=== PATIENT | female | born 1935 | race Hispanic/Latino ===

== ENCOUNTER 2017-09-07 10:39 | Emergency (ER) | payer MEDICARE, MEDICAID ==
[2017-09-07 10:39] VITALS: BMI 25.7
[2017-09-07 11:53] LABS: BASO % 0.3 % (0.0-2.0); EOS # 0.1 K/uL (0.0-0.7); EOS % 0.9 % (0.0-4.0); HEMOGLOBIN 11.2 g/dL (11.0-16.0); LYMPH % 8.6 % (20.0-40.0); MEAN CELL VOLUME 91.9 fL (81.0-99.0); MEAN CORPUSCULAR HEMOGLOBIN 31.5 pg (27.0-31.0); MEAN CORPUSCULAR HGB CONC 34.3 g/dL (33.0-37.0); MEAN PLATELET VOLUME 8.3 fL (7.2-11.7); MONO # 0.9 K/uL (0.0-0.8); MONO % 7.8 % (0.0-10.0); NEUT % 82.4 % (50.0-75.0); PLATELET COUNT 193 K/uL (130-400); RBC 3.57 Mil/uL (3.80-5.20); WHITE BLOOD COUNT 12.2 K/uL (4.8-10.8)
--- NOTE | 2017-09-07 12:09 | RAD ---
PROCEDURE: CHEST RADIOGRAPH, 1 VIEW HISTORY: chest pain COMPARISON: 03/20/2013 FINDINGS: LUNGS: Linear scar/ atelectasis at left base. Calcified granuloma at left base. No acute infiltrate. PLEURA: No pneumothorax or pleural fluid seen. CARDIOVASCULAR: Normal. OSSEOUS STRUCTURES: Old deformity right humeral head/ neck likely posttraumatic. VISUALIZED UPPER ABDOMEN: Normal. OTHER FINDINGS: None. IMPRESSION: No acute infiltrate.
[2017-09-07 12:18] LABS: BANDS 1 % (0-2); EOSINOPHIL 1 % (0-4); LYMPHOCYTE 5 % (20-40); MONOCYTE 6 % (0-10); NEUTROPHIL 87 % (50-75); PLATELET ESTIMATE NORMAL (NORMAL); TOTAL CELLS COUNTED 100
--- NOTE | 2017-09-07 12:21 | C.PDOC ---
History Of Present Illness 81 y/o female present sto ED with c/o body aches, cough and subjective fever for 2 days. Patient reports she is on oxygen twice at day at home and uses inhaler whhen needed. Patient admits to rib pain with inspiration and denies nausea, vomiting, diarrhea or any other complaints at this time. Time Seen by Provider: 09/07/17 11:24 Chief Complaint (Nursing): Flu-like Symptoms History Per: Patient History/Exam Limitations: no limitations Onset/Duration Of Symptoms: Days Current Symptoms Are (Timing): Still Present Associated Symptoms: Cough. denies: Nausea, Vomiting, Diarrhea Past Medical History Reviewed: Historical Data, Nursing Documentation, Vital Signs Vital Signs: Last Vital Signs Temp 98.2 F 09/07/17 13:51 Pulse 74 09/07/17 13:51 Resp 18 09/07/17 13:51 BP 118/74 09/07/17 13:51 Pulse Ox 100 09/07/17 13:51 - Medical History PMH: Arthritis, Diabetes, Gastritis, HTN, Hypercholesterolemia Surgical History: Appendectomy - [facility] Procedures INJECT/INFUSE NEC (10/12/12) NON-INVASIVE MECHANICAL VENTILATION (05/28/13) Family History: States: No Known Family Hx - Social History Hx Tobacco Use: No Hx Alcohol Use: No Hx Substance Use: No - Immunization History Hx Tetanus Toxoid Vaccination: No Hx Influenza Vaccination: Yes Hx Pneumococcal Vaccination: Yes Review Of Systems Constitutional: Positive for: Fever. Negative for: Chills Cardiovascular: Negative for: Chest Pain Respiratory: Positive for: Cough. Negative for: Shortness of Breath Gastrointestinal: Negative for: Nausea, Vomiting Skin: Negative for: Rash Physical Exam - Physical Exam Appears: Non-toxic, No Acute Distress, Other (elderly appearing) Skin: Warm, Dry, No Rash Head: Atraumatic, Normacephalic Neck: Normal ROM, Supple Cardiovascular: Rhythm Regular Respiratory: Normal Breath Sounds, No Accessory Muscle Use, No Rales, No Rhonchi , No Wheezing Gastrointestinal/Abdominal: Soft, No Tenderness, No Guarding, No Rebound Neurological/Psych: Oriented x3, Normal Speech, Normal Cognition ED Course And Treatment - Laboratory Results Result Diagrams: 09/07/17 11:43 09/07/17 11:50 O2 Sat by Pulse Oximetry: 95 (RA) Pulse Ox Interpretation: Normal Disposition - Disposition Referrals: Artemio Henry [Staff Provider] - Disposition: HOME/ ROUTINE Disposition Time: 15:05 Condition: GOOD Additional Instructions: Follow up with the medical doctor within 1-2 days. Return if worsened. Prescriptions: Azithromycin [Zithromax] 250 mg PO DAILY #6 tab predniSONE [Prednisone] 20 mg PO BID #10 tab Instructions: Acute Bronchitis Forms: [facility] (Syriac) - Clinical Impression Clinical Impression: Bronchitis - PA / [employer] / Resident Statement MD/DO has reviewed & agrees with the documentation as recorded. - Scribe Statement The provider has reviewed the documentation as recorded by the Scribe Asmita Garcia All medical record entries made by the Benjamin were at my direction and personally dictated by me. I have reviewed the chart and agree that the record accurately reflects my personal performance of the history, physical exam, medical decision making, and the department course for this patient. I have also personally directed, reviewed, and agree with the discharge instructions and disposition.
[2017-09-07] MEDS: Albuterol-Ipratrop 3 mg / 0.5 (3 ml) UD IH SCH ×2 (13:25→13:40)
[2017-09-07 13:27] LABS: ALB/GLOB RATIO 1.1 (1.0-2.1); ALBUMIN 3.9 g/dL (3.5-5.0); ALT/SGPT 19 U/L (9-52); AST/SGOT 20 U/L (14-36); BLOOD UREA NITROGEN 28 mg/dL (7-17); CALCIUM 9.4 mg/dl (8.6-10.4); GFR AFRICAN-AMERICAN 58; GFR NON-AFRICAN AMERICAN 48
[2017-09-07] MEDS ORDERED: Albuterol-Ipratrop 3 mg / 0.5 (3 ml) UD ONE ×2 (13:32→13:35)
[2017-09-07 13:34] LABS: B-TYPE NATRIURETIC PEPTIDE 582 pg/mL (0-900)
[2017-09-07 13:51] VITALS: BP 118/74; PULSE 74; RESP 18; TEMP 98.2
[2017-09-07 15:05] VITALS: O2SAT 95
== END 2017-09-07 16:00 | disposition home or self-care (01) ==
LOC: C.ER 10:39
DX: J40 Bronchitis, not specified as acute or chronic (principal); I10 Essential (primary) hypertension; E78.00 Pure hypercholesterolemia, unspecified; E11.9 Type 2 diabetes mellitus without complications

== ENCOUNTER 2017-11-04 18:26 | Emergency (ER) | payer MEDICAID, MEDICARE ==
[2017-11-04 18:36] VITALS: BMI 22.9
--- NOTE | 2017-11-04 19:11 | C.PDOC ---
History Of Present Illness 81 year old female presents to the ED complaining of elevated blood pressure of 180 systolic at home. Patient reports she took both doses of her HTN medication. She denies any SOB, chest pain, headache, or vision changes. Patients has no physical complaints at this time. Time Seen by Provider: 11/04/17 18:55 Chief Complaint (Nursing): Headache History Per: Patient History/Exam Limitations: no limitations Onset/Duration Of Symptoms: Hrs Current Symptoms Are (Timing): Still Present Associated Symptoms: denies: Blurred Vision Past Medical History Reviewed: Historical Data, Nursing Documentation, Vital Signs Vital Signs: Last Vital Signs Temp 98.2 F 11/04/17 19:28 Pulse 66 11/04/17 19:28 Resp 18 11/04/17 19:28 BP 180/64 H 11/04/17 21:21 Pulse Ox 99 11/04/17 19:28 - Medical History PMH: Arthritis, Diabetes, Gastritis, HTN, Hypercholesterolemia Surgical History: Appendectomy - [facility] Procedures INJECT/INFUSE NEC (10/12/12) NON-INVASIVE MECHANICAL VENTILATION (05/28/13) Family History: States: No Known Family Hx - Social History Hx Tobacco Use: No Hx Alcohol Use: No Hx Substance Use: No - Immunization History Hx Tetanus Toxoid Vaccination: No Hx Influenza Vaccination: Yes Hx Pneumococcal Vaccination: Yes Review Of Systems Except As Marked, All Systems Reviewed And Found Negative. Constitutional: Positive for: Other Cardiovascular: Negative for: Chest Pain Respiratory: Negative for: Shortness of Breath Neurological: Negative for: Headache Physical Exam - Physical Exam Additional Physical Exam Comments: Constitutional: No acute distress. Head: Normocephalic. Atraumatic. Eyes: PERRL. ENT: Moist mucous membranes. Neck: Supple. Cardiovascular: Regular rate. Radial pulse 2+ bilaterally. Chest: No tenderness. Respiratory: Clear to auscultation bilaterally. GI: Soft. Nontender. Nondistended. Back: No CVA tenderness. Musculoskeletal: No tenderness or swelling of extremities. Skin: No rash. Neurologic: Alert, no focal deficit. ED Course And Treatment ECG: Interpreted By Me, Viewed By Me ECG Rhythm: Sinus Rhythm ECG Interpretation: No Acute Changes Interpretation Of ECG: No ST/T wave changes. Rate From EC O2 Sat by Pulse Oximetry: 98 (RA) Pulse Ox Interpretation: Normal Medical Decision Making Medical Decision Making: Patient in ED for 3 hours, no developing symptoms. Advised to f/u with PMD for further HTN control but in absence of symptoms, no emergent treatment indicated. Instructed to return to the ED for chest pain, dyspnea, or headache. Disposition - Disposition Disposition: HOME/ ROUTINE Disposition Time: 21:43 Condition: STABLE Instructions: High Blood Pressure Emergencies Forms: [facility] (Telugu) - Clinical Impression Clinical Impression: Hypertensive urgency - Scribe Statement The provider has reviewed the documentation as recorded by the Scribmichi Muñoz All medical record entries made by the Margieibmichi were at my direction and personally dictated by me. I have reviewed the chart and agree that the record accurately reflects my personal performance of the history, physical exam, medical decision making, and the department course for this patient. I have also personally directed, reviewed, and agree with the discharge instructions and disposition.
[2017-11-04 22:43] VITALS: BP 156/64; PULSE 68; RESP 16; TEMP 98.6; O2SAT 97
--- NOTE | 2017-11-05 23:09 | CARD ---
APPROVED REPORT Date of service: 11/04/2017 EKG Measurement Heart [id number] <Conclusion> Normal sinus rhythm Left anterior fascicular block Abnormal ECG
== END 2017-11-04 22:50 | disposition home or self-care (01) ==
LOC: C.ER 18:26
DX: I16.0 Hypertensive urgency (principal); E11.9 Type 2 diabetes mellitus without complications; E78.00 Pure hypercholesterolemia, unspecified; I10 Essential (primary) hypertension

== ENCOUNTER 2017-11-14 15:42 | Observation (INO) | payer MEDICARE, OTHER ==
[2017-11-14 15:43] VITALS: BMI 22.9
[2017-11-14 16:30] LABS: BASO # 0.1 K/uL (0.0-0.2); BASO % 0.8 % (0.0-2.0); EOS # 0.1 K/uL (0.0-0.7); EOS % 0.7 % (0.0-4.0); HEMOGLOBIN 11.7 g/dL (11.0-16.0); LYMPH # 1.9 K/uL (1.0-4.3); LYMPH % 20.3 % (20.0-40.0); MEAN CELL VOLUME 89.5 fL (81.0-99.0); MEAN CORPUSCULAR HEMOGLOBIN 31.4 pg (27.0-31.0); MEAN CORPUSCULAR HGB CONC 35.1 g/dL (33.0-37.0); MEAN PLATELET VOLUME 7.8 fL (7.2-11.7); MONO % 10.4 % (0.0-10.0); NEUT # 6.4 K/uL (1.8-7.0); NEUT % 67.8 % (50.0-75.0); RBC 3.71 Mil/uL (3.80-5.20); RED CELL DISTRIBUTION WIDTH 13.3 % (11.5-14.5); WHITE BLOOD COUNT 9.5 K/uL (4.8-10.8)
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
[2017-11-14 16:47] LABS: ALB/GLOB RATIO 1.3 (1.0-2.1); ALBUMIN 4.3 g/dL (3.5-5.0); ALT/SGPT 30 U/L (9-52); AST/SGOT 28 U/L (14-36); BLOOD UREA NITROGEN 26 mg/dL (7-17); CALCIUM 9.2 mg/dl (8.6-10.4); GFR NON-AFRICAN AMERICAN 39
--- NOTE | 2017-11-14 16:57 | CT ---
Date of service: 11/14/2017 PROCEDURE: CT HEAD WITHOUT CONTRAST. HISTORY: headache COMPARISON: No prior study available for comparison TECHNIQUE: Axial computed tomography images were obtained through the head/brain without intravenous contrast. Radiation dose: Total exam DLP = 725.89 mGy-cm. This CT exam was performed using one or more of the following dose reduction techniques: Automated exposure control, adjustment of the mA and/or kV according to patient size, and/or use of iterative reconstruction technique. FINDINGS: HEMORRHAGE: No acute parenchymal, subarachnoid or extra-axial hemorrhage. BRAIN: Mild diffuse/confluent chronic periventricular white matter ischemic changes seen extending peripherally into the deep and subcortical white matter both cerebral hemispheres. Patchy more discrete subcortical white matter ischemic changes with a few scattered chronic bilateral basal nuclei lacunar type infarcts are present. No obvious parenchymal nor extra-axial mass or collection seen on this noncontrast study. Moderate generalized volume loss. Vascular calcifications both carotid siphons and right vertebral artery. VENTRICLES: No obstructive hydrocephalus. CALVARIUM: Calvarium intact. . Mild hyperostosis frontalis interna. PARANASAL SINUSES: Mild mucosal thickening noted within the left maxillary antrum. There is mild sclerosis and thickening posterolateral wall of the right to a lesser degree left maxillary antra. Minimal mucosal thickening also noted within a few ethmoid air cells. MASTOID AIR CELLS: The right mastoid air complex is sclerotic and underpneumatized compared the left side. OTHER FINDINGS: Changes of bilateral cataract surgery present. IMPRESSION: No acute intracranial hemorrhage. Chronic white matter and basal nuclei ischemic changes. Moderate generalized volume loss. Sclerotic underpneumatized right mastoid air complex.
[2017-11-14 16:59] LABS: SQUAMOUS EPITHIAL 4 /hpf (0-5); URINE BACTERIA RARE (<OCC); URINE BILIRUBIN NEGATIVE (NEGATIVE); URINE BLOOD NEGATIVE (NEGATIVE); URINE CLARITY Hazy (Clear); URINE COLOR Yellow (YELLOW); URINE GLUCOSE (UA) NORMAL (Normal); URINE LEUKOCYTE ESTERASE NEG Leu/uL (Negative); URINE PROTEIN NEGATIVE (NEGATIVE); URINE UROBILINOGEN NORMAL mg/dL (0.2-1.0)
[2017-11-14 17:00] LABS: B-TYPE NATRIURETIC PEPTIDE 2710 pg/mL (0-900)
--- NOTE | 2017-11-14 17:05 | RAD ---
Date of service: 11/14/2017 PROCEDURE: CHEST RADIOGRAPH, 1 VIEW HISTORY: SOB COMPARISON: None available. FINDINGS: LUNGS: Diffuse increased/coarsened interstitial markings possibly representing interstitial infiltrates versus pulmonary edema/ CHF. . Calcified granuloma left lung base. Mild biapical pleural thickening. PLEURA: As above. No evidence of pneumothorax. No significant effusion CARDIOVASCULAR: Mild cardiomegaly unchanged OSSEOUS STRUCTURES: No significant abnormalities. VISUALIZED UPPER ABDOMEN: Normal. OTHER FINDINGS: None. IMPRESSION: Diffuse increased/coarsened interstitial markings possibly representing interstitial infiltrates versus pulmonary edema/ CHF. . Calcified granuloma left lung base. Mild biapical pleural thickening.
[2017-11-15] MEDS ORDERED: Albuterol 0.083% Inhal Sol (2.5 mg/3 mL) UD IH SCH (00:45)
[2017-11-15] MEDS: Albuterol 0.083% Inhal Sol (2.5 mg/3 mL) UD IH SCH ×4 (01:44→19:24)
--- NOTE | 2017-11-15 09:08 | CP.PCM.PN ---
Subjective - Date & Time of Evaluation Date of Evaluation: 11/15/17 Time of Evaluation: 09:03 - Subjective Subjective: 81 year old female presented to the ER with a complaint of subjective fever, chills, and decreased urination for the past 2 days, associated with bilateral leg swelling. She was found to be in CHF with BNP elevated. Admitted for observation under tele. Pt seen and examined at bedside this morning. She states that she is doing well and feels better. PMHx: Asthma, HTN, CAD, Alzheimer's, Anxiety, Anemia, NIDDM, osteoperosis, anemia, Urinary Incontinence PSHx: Denied Meds: Nexium 30mg QD, Vascepa 1g QD, Amtiza 24mcg PO QID, Meloxicam 7.5mg PO QD , Albuterol inhaler prn, Alendronate 70mg QW, amlodipine 5mg po qd, coreg 25mg PO QD, Aricept 10mg PO QD, iron 325mg PO QD, Advair 500/50 1puff qd, HCTZ 12.5mg PO QD. Linagliptin 5mg PO QD, losartan 50mg PO QD, meclizine 25 mg PO TID , Oxybutynin 5mg PO QD, Paroxetine 10mg PO QD Allergies: NKDA Social Hx: denies alcohol/tobacco/drugs Family Hx: "heart problems" Objective - Vital Signs/Intake and Output Vital Signs (last 24 hours): Temp Pulse Resp BP Pulse Ox 99.1 F 73 20 128/58 L 96 11/15/17 08:32 11/15/17 08:32 11/15/17 08:32 11/15/17 08:32 11/15/17 08:32 Intake and Output: 11/15/17 11/15/17 06:59 18:59 Intake Total 120 Output Total 400 Balance -280 - Medications Medications: Current Medications Albuterol Sulfate (Albuterol 0.083% Inhal Amberly (2.5 Mg/3 Ml) Ud) 2.5 mg IH Q6H [facility] Last Admin: 11/15/17 08:06 Dose: 2.5 mg Alprazolam (Xanax) 0.5 mg PO HS [facility] Amlodipine Besylate (Norvasc) 5 mg PO DAILY [facility] Carvedilol (Coreg) 25 mg PO DAILY [facility] Clopidogrel Bisulfate (Plavix) 75 mg PO DAILY [facility] Donepezil HCl (Aricept) 10 mg PO DAILY [facility] Enoxaparin Sodium (Lovenox) 40 mg SC DAILY [facility] Ferrous Sulfate (Feosol) 325 mg PO DAILY [facility] Furosemide (Lasix) 40 mg IVP BID [facility] Gabapentin (Neurontin) 100 mg PO BID [facility] Home Med (Alendronate Sodium [Alendronate Sodium]) 70 mg PO QWK [facility] Home Med (Linagliptin [Tradjenta]) 5 mg PO DAILY [facility] Losartan Potassium (Cozaar) 50 mg PO DAILY [facility] Meclizine HCl (Antivert) 25 mg PO TID [facility] Oxybutynin Chloride (Ditropan Tab) 5 mg PO DAILY [facility] Pantoprazole Sodium (Protonix Ec Tab) 40 mg PO DAILY [facility] Paroxetine HCl (Paxil) 10 mg PO DAILY [facility] Fluticasone/Salmeterol (Advair Diskus 500/50) 1 puff INH RQD [facility] - Labs Labs: 11/14/17 16:24 11/14/17 16:24 - Constitutional Appears: No Acute Distress - Head Exam Head Exam: ATRAUMATIC, NORMOCEPHALIC - Eye Exam Eye Exam: EOMI - ENT Exam ENT Exam: Mucous Membranes Moist - Respiratory Exam Respiratory Exam: Clear to Ausculation Bilateral, NORMAL BREATHING PATTERN - Cardiovascular Exam Cardiovascular Exam: REGULAR RHYTHM - GI/Abdominal Exam GI & Abdominal Exam: Soft. absent: Tenderness - Extremities Exam Extremities Exam: absent: Pedal Edema - Neurological Exam Neurological Exam: Alert, Awake - Psychiatric Exam Psychiatric exam: Normal Affect, Normal Mood - Skin Skin Exam: Dry, Warm Assessment and Plan - Assessment and Plan (Free Text) Plan: CHF Cardio consult placed to Dr. 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 Greenfield All medical management as per Dr. Greenfield
[2017-11-15] MEDS ORDERED: ALENDRONATE SODIUM 70 MG PO SCH (10:00)
[2017-11-15] MEDS: Pantoprazole 40 mg EC Tab PO SCH (10:28)
[2017-11-15] MEDS: Enoxaparin 40 mg Syringe SC SCH (10:28)
[2017-11-15] MEDS: Fluticasone-Salmeterol 500-50mcg Diskus INH SCH (13:15)
[2017-11-15] MEDS ORDERED: Dextrose 50% SYRINGE Inj (50 ml) IV PRN (16:11)
[2017-11-15] MEDS ORDERED: Glucagon Recombinant 1 mg Inj IM PRN (16:11)
[2017-11-15] MEDS: (Novolin R) Insulin Human Regular 100 units/ml vial SC SCH ×2 (17:04→21:33)
--- NOTE | 2017-11-15 22:48 | CP.PCM.CON ---
History of Present Illness - History of Present Illness History of Present Illness: Reason For Consultation: CHF 81 year old female presented to the ER with a complaint of subjective fever, chills, and decreased urination for the past 2 days, associated with bilateral leg swelling. She was found to be in CHF with BNP elevated. Admitted for observation under tele. Pt seen and examined at bedside this morning. She states that she is doing well and feels better. PMHx: Asthma, HTN, CAD, Alzheimer's, Anxiety, Anemia, NIDDM, osteoperosis, anemia, Urinary Incontinence PSHx: Denied Meds: Nexium 30mg QD, Vascepa 1g QD, Amtiza 24mcg PO QID, Meloxicam 7.5mg PO QD , Albuterol inhaler prn, Alendronate 70mg QW, amlodipine 5mg po qd, coreg 25mg PO QD, Aricept 10mg PO QD, iron 325mg PO QD, Advair 500/50 1puff qd, HCTZ 12.5mg PO QD. Linagliptin 5mg PO QD, losartan 50mg PO QD, meclizine 25 mg PO TID , Oxybutynin 5mg PO QD, Paroxetine 10mg PO QD Allergies: NKDA Social Hx: denies alcohol/tobacco/drugs Family Hx: "heart problems" Physical Examination - Constitutional Appears: No Acute Distress - Head Exam Head Exam: ATRAUMATIC, NORMOCEPHALIC - Eye Exam Eye Exam: EOMI - ENT Exam ENT Exam: Mucous Membranes Moist - Respiratory Exam Respiratory Exam: Clear to Ausculation Bilateral, NORMAL BREATHING PATTERN - Cardiovascular Exam Cardiovascular Exam: REGULAR RHYTHM - GI/Abdominal Exam GI & Abdominal Exam: Soft. absent: Tenderness - Extremities Exam Extremities Exam: absent: Pedal Edema - Neurological Exam Neurological Exam: Alert, Awake - Psychiatric Exam Psychiatric exam: Normal Affect, Normal Mood - Skin Skin Exam: Dry, Warm Past Patient History - Past Social History Smoking Status: Never Smoked - CARDIAC Hx Hypercholesterolemia: Yes Hx Hypertension: Yes - MUSCULOSKELETAL/RHEUMATOLOGICAL Hx Arthritis: Yes - GASTROINTESTINAL Hx Gastritis: Yes - PSYCHIATRIC Hx Substance Use: No - SURGICAL HISTORY Hx Appendectomy: Yes - ANESTHESIA Hx Anesthesia: Yes Hx Anesthesia Reactions: No Meds Allergies/Adverse Reactions: Allergies Allergy/AdvReac Type Severity Reaction Status Date / Time aspirin Allergy Verified 11/14/17 15:54 - Medications Medications: Current Medications Albuterol Sulfate (Albuterol 0.083% Inhal Amberly (2.5 Mg/3 Ml) Ud) 2.5 mg IH Q6H [facility] Last Admin: 11/15/17 19:24 Dose: 2.5 mg Alprazolam (Xanax) 0.5 mg PO HS [facility] Last Admin: 11/15/17 22:16 Dose: 0.5 mg Amlodipine Besylate (Norvasc) 5 mg PO DAILY [facility] Last Admin: 11/15/17 10:27 Dose: 5 mg Carvedilol (Coreg) 25 mg PO DAILY [facility] Last Admin: 11/15/17 10:26 Dose: 25 mg Clopidogrel Bisulfate (Plavix) 75 mg PO DAILY [facility] Last Admin: 11/15/17 10:27 Dose: 75 mg Dextrose (Dextrose 50% Inj) 0 ml IV STAT PRN; Protocol PRN Reason: Hypoglycemia Protocol Dextrose (Glutose 15) 0 gm PO ONCE PRN; Protocol PRN Reason: Hypoglycemia Protocol Donepezil HCl (Aricept) 10 mg PO DAILY [facility] Last Admin: 11/15/17 10:27 Dose: 10 mg Enoxaparin Sodium (Lovenox) 40 mg SC DAILY [facility] Last Admin: 11/15/17 10:28 Dose: 40 mg Ferrous Sulfate (Feosol) 325 mg PO DAILY [facility] Last Admin: 11/15/17 10:28 Dose: 325 mg Furosemide (Lasix) 40 mg IVP BID [facility] Last Admin: 11/15/17 18:57 Dose: 40 mg Gabapentin (Neurontin) 100 mg PO BID [facility] Last Admin: 11/15/17 18:56 Dose: 100 mg Glucagon (Glucagen Diagnostic Kit) 0 mg IM STAT PRN; Protocol PRN Reason: Hypoglycemia Protocol Home Med (Alendronate Sodium [Alendronate Sodium]) 70 mg PO QWK [facility] Home Med (Linagliptin [Tradjenta]) 5 mg PO DAILY [facility] Dextrose (Dextrose 5% In Water 1000 Ml) 1,000 mls @ 0 mls/hr IV .Q0M PRN; Protocol; Per Protocol PRN Reason: Hypoglycemia Protocol Insulin Human Regular (Novolin R) 0 unit SC ACHS [facility] PRN Reason: Protocol Last Admin: 11/15/17 21:33 Dose: Not Given Losartan Potassium (Cozaar) 50 mg PO DAILY [facility] Last Admin: 11/15/17 10:27 Dose: 50 mg Meclizine HCl (Antivert) 25 mg PO TID [facility] Last Admin: 11/15/17 18:59 Dose: 25 mg Oxybutynin Chloride (Ditropan Tab) 5 mg PO DAILY [facility] Last Admin: 11/15/17 10:28 Dose: 5 mg Pantoprazole Sodium (Protonix Ec Tab) 40 mg PO DAILY [facility] Last Admin: 11/15/17 10:28 Dose: 40 mg Paroxetine HCl (Paxil) 10 mg PO DAILY [facility] Last Admin: 11/15/17 10:28 Dose: 10 mg Fluticasone/Salmeterol (Advair Diskus 500/50) 1 puff INH RQD [facility] Last Admin: 11/15/17 13:15 Dose: Not Given Results - Vital Signs Recent Vital Signs: Last Vital Signs Temp 98.7 F 11/15/17 16:00 Pulse 67 11/15/17 16:00 Resp 20 11/15/17 16:00 BP 124/62 11/15/17 18:57 Pulse Ox 95 11/15/17 16:00 - Labs Result Diagrams: 11/14/17 16:24 11/14/17 16:24 Labs: Laboratory Results - last 24 hr 11/15/17 11/15/17 11/15/17 06:39 13:27 16:42 POC Glucose (mg/dL) 99 142 H 144 H 11/15/17 20:44 POC Glucose (mg/dL) 160 H Assessment & Plan - Assessment and Plan (Free Text) Assessment: CHF CXR indicative of acute CHF CT head- negative BNP 2710 on admission EKG- follow up official read ECHO- pending Lasix 40mg IVP BID Norvasc 5mg PO QD Coreg 25mg PO QD Cozaar 50mg PO QD CAD Plavix 75mg PO QD Alzheimer's Dementia Aricept 10mg PO QD Asthma albuterol 2.5mg INH q6hrs advair 500/50 1P RQD Anxiety Xanax 0.5mg PO QHS Paxil 10mg PO daily Anemia Ferrous sulfate 325mg PO daily HTN- well controlled Norvasc 5mg PO QD Coreg 25mg PO QD Cozaar 50mg PO QD Osteoperosis c/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
--- NOTE | 2017-11-16 02:04 | CARD ---
APPROVED REPORT Date of service: 11/14/2017 EKG Measurement Heart [id number] <Conclusion> Normal sinus rhythm Left anterior fascicular block Nonspecific T wave abnormality Abnormal ECG
[2017-11-16] MEDS: Albuterol 0.083% Inhal Sol (2.5 mg/3 mL) UD IH SCH ×4 (02:57→19:56)
--- NOTE | 2017-11-16 07:18 | HP ---
Copied To: Holger Greenfield MD Attending MD: Holger Greenfield MD HISTORY OF PRESENT ILLNESS: This is 81-year-old female, admitted to the hospital with a chief complaint of progressive weakness, fatigue, tiredness, shortness of breath. congestive heart failure, advised admission. PHYSICAL EXAMINATION: GENERAL: The patient is awake, alert, and oriented. VITAL SIGNS: Temperature 98, pulse 90. HEENT: Within normal limits. NECK: Supple. CHEST: Symmetrical. HEART: Regular. ABDOMEN: Soft. EXTREMITIES: No edema. IMPRESSION: The patient suffers from congestive heart failure. Patient to get bed rest, diuresis, and supportive care. Holger Greenfield MD
[2017-11-16] MEDS: (Novolin R) Insulin Human Regular 100 units/ml vial SC SCH ×4 (07:27→22:26)
[2017-11-16 08:15] LABS: BASO # 0.1 K/uL (0.0-0.2); BASO % 1.2 % (0.0-2.0); EOS # 0.1 K/uL (0.0-0.7); EOS % 0.9 % (0.0-4.0); HEMOGLOBIN 10.7 g/dL (11.0-16.0); LYMPH # 2.2 K/uL (1.0-4.3); LYMPH % 22.6 % (20.0-40.0); MEAN CELL VOLUME 90.5 fL (81.0-99.0); MEAN CORPUSCULAR HEMOGLOBIN 31.6 pg (27.0-31.0); MEAN CORPUSCULAR HGB CONC 34.9 g/dL (33.0-37.0); MEAN PLATELET VOLUME 8.5 fL (7.2-11.7); MONO # 1.3 K/uL (0.0-0.8); MONO % 13.1 % (0.0-10.0); NEUT % 62.2 % (50.0-75.0); RBC 3.4 Mil/uL (3.80-5.20); RED CELL DISTRIBUTION WIDTH 13.5 % (11.5-14.5); WHITE BLOOD COUNT 9.6 K/uL (4.8-10.8)
[2017-11-16] MEDS: Fluticasone-Salmeterol 500-50mcg Diskus INH SCH (08:33)
--- NOTE | 2017-11-16 08:50 | CP.PCM.PN ---
Subjective - Date & Time of Evaluation Date of Evaluation: 11/16/17 Time of Evaluation: 07:35 - Subjective Subjective: PGY3 Resident - Medicine Progress Note Patient seen and examined at bedside. No acute distress. No overnight events. She states that she is doing well and feels better. Patient is due for echocardiogram today. She is tolerating her diet. 12-point review of systems is otherwise negative without any additional acute complaints. Objective - Vital Signs/Intake and Output Vital Signs (last 24 hours): Temp Pulse Resp BP Pulse Ox 98.2 F 66 20 122/55 L 100 11/16/17 07:35 11/16/17 07:35 11/16/17 07:35 11/16/17 07:35 11/16/17 07:35 Intake and Output: 11/16/17 11/16/17 06:59 18:59 Intake Total 240 Balance 240 - Medications Medications: Current Medications Albuterol Sulfate (Albuterol 0.083% Inhal Amberly (2.5 Mg/3 Ml) Ud) 2.5 mg IH Q6H [facility] Last Admin: 11/16/17 08:33 Dose: 2.5 mg Alprazolam (Xanax) 0.5 mg PO HS [facility] Last Admin: 11/15/17 22:16 Dose: 0.5 mg Amlodipine Besylate (Norvasc) 5 mg PO DAILY [facility] Last Admin: 11/15/17 10:27 Dose: 5 mg Carvedilol (Coreg) 25 mg PO DAILY [facility] Last Admin: 11/15/17 10:26 Dose: 25 mg Clopidogrel Bisulfate (Plavix) 75 mg PO DAILY [facility] Last Admin: 11/15/17 10:27 Dose: 75 mg Dextrose (Dextrose 50% Inj) 0 ml IV STAT PRN; Protocol PRN Reason: Hypoglycemia Protocol Dextrose (Glutose 15) 0 gm PO ONCE PRN; Protocol PRN Reason: Hypoglycemia Protocol Donepezil HCl (Aricept) 10 mg PO DAILY [facility] Last Admin: 11/15/17 10:27 Dose: 10 mg Enoxaparin Sodium (Lovenox) 40 mg SC DAILY [facility] Last Admin: 11/15/17 10:28 Dose: 40 mg Ferrous Sulfate (Feosol) 325 mg PO DAILY [facility] Last Admin: 11/15/17 10:28 Dose: 325 mg Furosemide (Lasix) 40 mg IVP BID [facility] Last Admin: 11/15/17 18:57 Dose: 40 mg Gabapentin (Neurontin) 100 mg PO BID [facility] Last Admin: 11/15/17 18:56 Dose: 100 mg Glucagon (Glucagen Diagnostic Kit) 0 mg IM STAT PRN; Protocol PRN Reason: Hypoglycemia Protocol Home Med (Alendronate Sodium [Alendronate Sodium]) 70 mg PO QWK [facility] Home Med (Linagliptin [Tradjenta]) 5 mg PO DAILY [facility] Dextrose (Dextrose 5% In Water 1000 Ml) 1,000 mls @ 0 mls/hr IV .Q0M PRN; Protocol; Per Protocol PRN Reason: Hypoglycemia Protocol Insulin Human Regular (Novolin R) 0 unit SC ACHS [facility] PRN Reason: Protocol Last Admin: 11/16/17 07:27 Dose: Not Given Losartan Potassium (Cozaar) 50 mg PO DAILY [facility] Last Admin: 11/15/17 10:27 Dose: 50 mg Meclizine HCl (Antivert) 25 mg PO TID [facility] Last Admin: 11/15/17 18:59 Dose: 25 mg Oxybutynin Chloride (Ditropan Tab) 5 mg PO DAILY [facility] Last Admin: 11/15/17 10:28 Dose: 5 mg Pantoprazole Sodium (Protonix Ec Tab) 40 mg PO DAILY [facility] Last Admin: 11/15/17 10:28 Dose: 40 mg Paroxetine HCl (Paxil) 10 mg PO DAILY [facility] Last Admin: 11/15/17 10:28 Dose: 10 mg Fluticasone/Salmeterol (Advair Diskus 500/50) 1 puff INH RQD [facility] Last Admin: 11/16/17 08:33 Dose: Not Given - Labs Labs: 11/16/17 08:06 11/14/17 16:24 - Additional Findings Additional findings: - Constitutional Appears: No Acute Distress - Head Exam Head Exam: ATRAUMATIC, NORMOCEPHALIC - Eye Exam Eye Exam: EOMI - ENT Exam ENT Exam: Mucous Membranes Moist - Respiratory Exam Respiratory Exam: Clear to Ausculation Bilateral, NORMAL BREATHING PATTERN - Cardiovascular Exam Cardiovascular Exam: REGULAR RHYTHM, +S1, +S2 - GI/Abdominal Exam GI & Abdominal Exam: Soft. absent: Tenderness - Extremities Exam Extremities Exam: absent: Pedal Edema - Neurological Exam Neurological Exam: Alert, Awake - Psychiatric Exam Psychiatric exam: Normal Affect, Normal Mood - Skin Skin Exam: Dry, Warm Assessment and Plan - Assessment and Plan (Free Text) Assessment: CHF 11/16: f/u Echocardiogram results. Cardio consult placed to Dr. Sandi galeano appreciated CXR indicative of acute CHF CT head- negative BNP 2710 on admission EKG- follow up official read ECHO- pending Lasix 40mg IVP BID Norvasc 5mg PO QD Coreg 25mg PO QD Cozaar 50mg PO QD CAD Plavix 75mg PO QD Alzheimer's Dementia Aricept 10mg PO QD Asthma albuterol 2.5mg INH q6hrs advair 500/50 1P RQD Anxiety Xanax 0.5mg PO QHS Paxil 10mg PO daily Anemia Ferrous sulfate 325mg PO daily HTN- well controlled Norvasc 5mg PO QD Coreg 25mg PO QD Cozaar 50mg PO QD Osteoperosis c/w alendronate (home med) Urinary incontinence Oxybutynin 5mg PO QD DM with neuropathy Fingersticks ACHS follow up A1C ISS- low dose Gabapentin 100mg PO BID hypoglycemia protocol Electrolyte Imbalance Hypokalemia, K2.5 - KCl 10meq IVPB Q4H x5; KCL 10meq PO q4H x3 PPX Lovenox 40mg SC daily SCD Case discussed with Dr. Greenfield. All medical management as per Dr. Greenfield
[2017-11-16 09:10] LABS: ALB/GLOB RATIO 1.2 (1.0-2.1); ALBUMIN 3.7 g/dL (3.5-5.0); CALCIUM 8.8 mg/dl (8.6-10.4)
[2017-11-16] MEDS: Potassium Chloride 10 mEq ER Tab PO SCH ×3 (10:56→18:12)
[2017-11-16] MEDS: Pantoprazole 40 mg EC Tab PO SCH (10:57)
[2017-11-16] MEDS: Enoxaparin 40 mg Syringe SC SCH (10:58)
--- NOTE | 2017-11-16 17:06 | CARD ---
APPROVED REPORT Date of service: 11/16/2017 EXAM: Two-dimensional and M-mode echocardiogram with Doppler and color Doppler. Other Information Quality : TDSRhythm : INDICATION Cardiac Disease: CAD Congestive Heart Failure RISK FACTORS Hypertension 2D DIMENSIONS IVSd0.9 (0.7-1.1cm)LVDd4.0 (3.9-5.9cm) PWd0.8 (0.7-1.1cm)LVDs2.9 (2.5-4.0cm) FS (%) 27.7 %LVEF (%)55.0 (>50%) M-Mode DIMENSIONS Left Atrium (MM)3.68 (2.5-4.0cm)IVSd0.76 (0.7-1.1cm) Aortic Root2.92 (2.2-3.7cm)LVDd3.95 (4.0-5.6cm) Aortic Cusp Exc.1.77 (1.5-2.0cm)PWd0.78 (0.7-1.1cm) FS (%) 30 %LVDs2.75 (2.0-3.8cm) LVEF (%)58 (>50%) Mitral Valve MV E Kdzkpwfx841.4cm/sMV A Tptcuxqy084.4cm/sE/A ratio0.9 TDI E/Lateral E'0.0E/Medial E'0.0 Tricuspid Valve TR Peak [id number]/sTR Peak Gr.[id number] LEFT VENTRICLE The left ventricle is normal size. There is normal left ventricular wall thickness. The left ventricular function is normal. The left ventricular ejection fraction is within the normal range. There is normal LV segmental wall motion. Transmitral Doppler flow pattern is Grade I-abnormal relaxation pattern. RIGHT VENTRICLE The right ventricle is normal size. There is normal right ventricular wall thickness. The right ventricular systolic function is normal. ATRIA The left atrium size is normal. The right atrium size is normal. AORTIC VALVE The aortic valve is moderately thickened. No aortic regurgitation is present. There is no aortic valvular stenosis. MITRAL VALVE The mitral valve is moderately thickened. There is no mitral valve stenosis. Mitral regurgitation is trace. TRICUSPID VALVE The tricuspid valve is normal in structure. There is mild tricuspid regurgitation. There is mild pulmonary hypertension. PULMONIC VALVE The pulmonary valve is normal in structure. There is no pulmonic valvular regurgitation. GREAT VESSELS The aortic root is normal in size. The IVC is normal in size and collapses >50% with inspiration. PERICARDIAL EFFUSION There is no pericardial effusion. <Conclusion> The left ventricle is normal size. There is normal left ventricular wall thickness. The left ventricular function is normal. The left ventricular ejection fraction is within the normal range. There is normal LV segmental wall motion. Transmitral Doppler flow pattern is Grade I-abnormal relaxation pattern. There is mild tricuspid regurgitation. There is mild pulmonary hypertension.
[2017-11-17] MEDS: Albuterol 0.083% Inhal Sol (2.5 mg/3 mL) UD IH SCH ×4 (01:20→20:12)
[2017-11-17 07:23] LABS: BASO # 0.1 K/uL (0.0-0.2); BASO % 0.6 % (0.0-2.0); EOS # 0.1 K/uL (0.0-0.7); EOS % 1.4 % (0.0-4.0); HEMOGLOBIN 10.4 g/dL (11.0-16.0); LYMPH # 2.4 K/uL (1.0-4.3); LYMPH % 25.2 % (20.0-40.0); MEAN CELL VOLUME 89.9 fL (81.0-99.0); MEAN CORPUSCULAR HEMOGLOBIN 31.4 pg (27.0-31.0); MONO # 1.3 K/uL (0.0-0.8); MONO % 13.5 % (0.0-10.0); NEUT # 5.5 K/uL (1.8-7.0); NEUT % 59.3 % (50.0-75.0); RBC 3.31 Mil/uL (3.80-5.20); RED CELL DISTRIBUTION WIDTH 13.3 % (11.5-14.5); WHITE BLOOD COUNT 9.3 K/uL (4.8-10.8)
[2017-11-17] MEDS: (Novolin R) Insulin Human Regular 100 units/ml vial SC SCH ×4 (07:26→21:29)
[2017-11-17 07:36] LABS: ALB/GLOB RATIO 1.1 (1.0-2.1); ALBUMIN 3.5 g/dL (3.5-5.0); CALCIUM 8.9 mg/dl (8.6-10.4)
[2017-11-17] MEDS: Fluticasone-Salmeterol 500-50mcg Diskus INH SCH (07:55)
--- NOTE | 2017-11-17 08:44 | CP.PCM.PN ---
Subjective - Date & Time of Evaluation Date of Evaluation: 11/16/17 Time of Evaluation: 22:30 - Subjective Subjective: Patient seen and evaluated Denies chest pain and dyspnea ECHO: Normal LV EF Diastolic dysfunction CHF with Preserved EF Decrease Lasix to 40mg po daily Continue other meds Objective - Vital Signs/Intake and Output Vital Signs (last 24 hours): Temp Pulse Resp BP Pulse Ox 98.5 F 69 20 134/74 96 11/17/17 07:35 11/17/17 07:35 11/17/17 07:35 11/17/17 07:35 11/17/17 07:35 - Medications Medications: Current Medications Albuterol Sulfate (Albuterol 0.083% Inhal Amberly (2.5 Mg/3 Ml) Ud) 2.5 mg IH Q6H [facility] Last Admin: 11/17/17 07:55 Dose: 2.5 mg Alprazolam (Xanax) 0.5 mg PO HS [facility] Last Admin: 11/16/17 22:27 Dose: 0.5 mg Amlodipine Besylate (Norvasc) 5 mg PO DAILY [facility] Last Admin: 11/16/17 10:57 Dose: 5 mg Carvedilol (Coreg) 25 mg PO DAILY [facility] Last Admin: 11/16/17 10:57 Dose: 25 mg Clopidogrel Bisulfate (Plavix) 75 mg PO DAILY [facility] Last Admin: 11/16/17 10:57 Dose: 75 mg Dextrose (Dextrose 50% Inj) 0 ml IV STAT PRN; Protocol PRN Reason: Hypoglycemia Protocol Dextrose (Glutose 15) 0 gm PO ONCE PRN; Protocol PRN Reason: Hypoglycemia Protocol Donepezil HCl (Aricept) 10 mg PO HS [facility] Last Admin: 11/16/17 22:26 Dose: 10 mg Enoxaparin Sodium (Lovenox) 40 mg SC DAILY [facility] Last Admin: 11/16/17 10:58 Dose: 40 mg Ferrous Sulfate (Feosol) 325 mg PO DAILY [facility] Last Admin: 11/16/17 14:02 Dose: 325 mg Furosemide (Lasix) 40 mg IVP BID [facility] Last Admin: 11/16/17 18:23 Dose: 40 mg Gabapentin (Neurontin) 100 mg PO BID [facility] Last Admin: 11/16/17 18:12 Dose: 100 mg Glucagon (Glucagen Diagnostic Kit) 0 mg IM STAT PRN; Protocol PRN Reason: Hypoglycemia Protocol Dextrose (Dextrose 5% In Water 1000 Ml) 1,000 mls @ 0 mls/hr IV .Q0M PRN; Protocol; Per Protocol PRN Reason: Hypoglycemia Protocol Insulin Human Regular (Novolin R) 0 unit SC ACHS [facility] PRN Reason: Protocol Last Admin: 11/17/17 07:26 Dose: Not Given Losartan Potassium (Cozaar) 50 mg PO DAILY [facility] Last Admin: 11/16/17 10:57 Dose: 50 mg Meclizine HCl (Antivert) 25 mg PO TID [facility] Last Admin: 11/16/17 18:11 Dose: 25 mg Oxybutynin Chloride (Ditropan Tab) 5 mg PO DAILY [facility] Last Admin: 11/16/17 10:57 Dose: 5 mg Pantoprazole Sodium (Protonix Ec Tab) 40 mg PO DAILY [facility] Last Admin: 11/16/17 10:57 Dose: 40 mg Paroxetine HCl (Paxil) 10 mg PO DAILY [facility] Last Admin: 11/16/17 10:57 Dose: 10 mg Fluticasone/Salmeterol (Advair Diskus 500/50) 1 puff INH RQD [facility] Last Admin: 11/17/17 07:55 Dose: Not Given Sitagliptin Phosphate (Januvia) 50 mg PO DAILY [facility] - Labs Labs: 11/17/17 07:16 11/17/17 07:16
[2017-11-17] MEDS: Pantoprazole 40 mg EC Tab PO SCH (10:20)
[2017-11-17] MEDS: Potassium Chloride 20 mEq ER Tab PO SCH (10:20)
[2017-11-17] MEDS: Enoxaparin 40 mg Syringe SC SCH (10:22)
--- NOTE | 2017-11-17 23:35 | CP.PCM.PN ---
Subjective - Date & Time of Evaluation Date of Evaluation: 11/17/17 Time of Evaluation: 07:30 - Subjective Subjective: Patient seen and evaluated denies chest pain and dyspnea Objective - Vital Signs/Intake and Output Vital Signs (last 24 hours): Temp Pulse Resp BP Pulse Ox 97.5 F L 72 18 130/70 99 11/17/17 16:58 11/17/17 16:58 11/17/17 16:58 11/17/17 17:24 11/17/17 16:58 Intake and Output: 11/17/17 11/18/17 18:59 06:59 Intake Total 400 Balance 400 - Medications Medications: Current Medications Albuterol Sulfate (Albuterol 0.083% Inhal Amberly (2.5 Mg/3 Ml) Ud) 2.5 mg IH Q6H [facility] Last Admin: 11/17/17 20:12 Dose: 2.5 mg Alprazolam (Xanax) 0.5 mg PO HS [facility] Last Admin: 11/17/17 21:29 Dose: 0.5 mg Amlodipine Besylate (Norvasc) 5 mg PO DAILY [facility] Last Admin: 11/17/17 10:21 Dose: 5 mg Carvedilol (Coreg) 25 mg PO DAILY [facility] Last Admin: 11/17/17 10:21 Dose: 25 mg Clopidogrel Bisulfate (Plavix) 75 mg PO DAILY [facility] Last Admin: 11/17/17 10:20 Dose: 75 mg Dextrose (Dextrose 50% Inj) 0 ml IV STAT PRN; Protocol PRN Reason: Hypoglycemia Protocol Dextrose (Glutose 15) 0 gm PO ONCE PRN; Protocol PRN Reason: Hypoglycemia Protocol Donepezil HCl (Aricept) 10 mg PO HS [facility] Last Admin: 11/17/17 21:29 Dose: 10 mg Enoxaparin Sodium (Lovenox) 40 mg SC DAILY [facility] Last Admin: 11/17/17 10:22 Dose: 40 mg Ferrous Sulfate (Feosol) 325 mg PO DAILY [facility] Last Admin: 11/17/17 10:21 Dose: 325 mg Furosemide (Lasix) 40 mg IVP BID [facility] Last Admin: 11/17/17 17:24 Dose: 40 mg Gabapentin (Neurontin) 100 mg PO BID [facility] Last Admin: 11/17/17 17:24 Dose: 100 mg Glucagon (Glucagen Diagnostic Kit) 0 mg IM STAT PRN; Protocol PRN Reason: Hypoglycemia Protocol Dextrose (Dextrose 5% In Water 1000 Ml) 1,000 mls @ 0 mls/hr IV .Q0M PRN; Protocol; Per Protocol PRN Reason: Hypoglycemia Protocol Insulin Human Regular (Novolin R) 0 unit SC ACHS [facility] PRN Reason: Protocol Last Admin: 11/17/17 21:29 Dose: Not Given Losartan Potassium (Cozaar) 50 mg PO DAILY [facility] Last Admin: 11/17/17 10:20 Dose: 50 mg Meclizine HCl (Antivert) 25 mg PO TID [facility] Last Admin: 11/17/17 17:24 Dose: 25 mg Oxybutynin Chloride (Ditropan Tab) 5 mg PO DAILY [facility] Last Admin: 11/17/17 10:21 Dose: 5 mg Pantoprazole Sodium (Protonix Ec Tab) 40 mg PO DAILY [facility] Last Admin: 11/17/17 10:20 Dose: 40 mg Paroxetine HCl (Paxil) 10 mg PO DAILY [facility] Last Admin: 11/17/17 10:21 Dose: 10 mg Potassium Chloride (K-Dur 20 Meq Er Tab) 20 meq PO DAILY [facility] Last Admin: 11/17/17 10:20 Dose: 20 meq Fluticasone/Salmeterol (Advair Diskus 500/50) 1 puff INH RQD [facility] Last Admin: 11/17/17 07:55 Dose: Not Given Sitagliptin Phosphate (Januvia) 50 mg PO DAILY [facility] Last Admin: 11/17/17 10:20 Dose: 50 mg - Labs Labs: 11/17/17 07:16 11/17/17 07:16 Assessment and Plan - Assessment and Plan (Free Text) Assessment: CHF-With preserved EF CXR indicative of acute CHF CT head- negative BNP 2710 on admission ECHO- Normal EF Lasix 40mg IVP BID Norvasc 5mg PO QD Coreg 25mg PO QD Cozaar 50mg PO QD CAD Plavix 75mg PO QD Alzheimer's Dementia Aricept 10mg PO QD Asthma albuterol 2.5mg INH q6hrs advair 500/50 1P RQD Anxiety Xanax 0.5mg PO QHS Paxil 10mg PO daily Anemia Ferrous sulfate 325mg PO daily HTN- well controlled Norvasc 5mg PO QD Coreg 25mg PO QD Cozaar 50mg PO QD Osteoperosis c/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
[2017-11-18 00:41] VITALS: RESP 20
[2017-11-18] MEDS: Albuterol 0.083% Inhal Sol (2.5 mg/3 mL) UD IH SCH ×4 (01:30→20:49)
[2017-11-18] MEDS: (Novolin R) Insulin Human Regular 100 units/ml vial SC SCH ×4 (07:11→22:14)
[2017-11-18] MEDS: Fluticasone-Salmeterol 500-50mcg Diskus INH SCH (08:04)
[2017-11-18 09:06] LABS: BASO # 0.1 K/uL (0.0-0.2); BASO % 0.7 % (0.0-2.0); EOS # 0.2 K/uL (0.0-0.7); EOS % 2.6 % (0.0-4.0); LYMPH % 27.1 % (20.0-40.0); MEAN CELL VOLUME 90.1 fL (81.0-99.0); MEAN CORPUSCULAR HEMOGLOBIN 31.1 pg (27.0-31.0); MEAN CORPUSCULAR HGB CONC 34.6 g/dL (33.0-37.0); MONO # 1.1 K/uL (0.0-0.8); MONO % 14.4 % (0.0-10.0); NEUT # 4.1 K/uL (1.8-7.0); NEUT % 55.2 % (50.0-75.0); NRBC % 0.1 % (0.0-2.0); RBC 3.85 Mil/uL (3.80-5.20); RED CELL DISTRIBUTION WIDTH 13.4 % (11.5-14.5); WHITE BLOOD COUNT 7.4 K/uL (4.8-10.8)
[2017-11-18 09:13] LABS: ALB/GLOB RATIO 1.4 (1.0-2.1); ALBUMIN 4.4 g/dL (3.5-5.0); ALT/SGPT 21 U/L (9-52); AST/SGOT 19 U/L (14-36); BLOOD UREA NITROGEN 32 mg/dL (7-17); CALCIUM 9.2 mg/dl (8.6-10.4); GFR NON-AFRICAN AMERICAN > 60
[2017-11-18] MEDS: Potassium Chloride 20 mEq ER Tab PO SCH (10:39)
[2017-11-18] MEDS: Enoxaparin 40 mg Syringe SC SCH (10:39)
[2017-11-18] MEDS: Pantoprazole 40 mg EC Tab PO SCH (10:39)
--- NOTE | 2017-11-18 21:31 | CP.PCM.PN ---
Subjective - Date & Time of Evaluation Date of Evaluation: 11/18/17 Time of Evaluation: 08:10 Objective - Vital Signs/Intake and Output Vital Signs (last 24 hours): Temp Pulse Resp BP Pulse Ox 99.2 F 67 20 120/71 95 11/18/17 15:00 11/18/17 15:00 11/18/17 15:00 11/18/17 17:47 11/18/17 15:00 Intake and Output: 11/18/17 11/19/17 18:59 06:59 Intake Total 400 Balance 400 - Medications Medications: Current Medications Albuterol Sulfate (Albuterol 0.083% Inhal Amberly (2.5 Mg/3 Ml) Ud) 2.5 mg IH Q6H [facility] Last Admin: 11/18/17 20:49 Dose: 2.5 mg Alprazolam (Xanax) 0.5 mg PO HS [facility] Last Admin: 11/17/17 21:29 Dose: 0.5 mg Amlodipine Besylate (Norvasc) 5 mg PO DAILY [facility] Last Admin: 11/18/17 10:39 Dose: 5 mg Carvedilol (Coreg) 25 mg PO DAILY [facility] Last Admin: 11/18/17 10:39 Dose: 25 mg Clopidogrel Bisulfate (Plavix) 75 mg PO DAILY [facility] Last Admin: 11/18/17 10:39 Dose: 75 mg Dextrose (Dextrose 50% Inj) 0 ml IV STAT PRN; Protocol PRN Reason: Hypoglycemia Protocol Dextrose (Glutose 15) 0 gm PO ONCE PRN; Protocol PRN Reason: Hypoglycemia Protocol Donepezil HCl (Aricept) 10 mg PO HS [facility] Last Admin: 11/17/17 21:29 Dose: 10 mg Enoxaparin Sodium (Lovenox) 40 mg SC DAILY [facility] Last Admin: 11/18/17 10:39 Dose: 40 mg Ferrous Sulfate (Feosol) 325 mg PO DAILY [facility] Last Admin: 11/18/17 10:39 Dose: 325 mg Furosemide (Lasix) 40 mg IVP BID [facility] Last Admin: 11/18/17 17:47 Dose: 40 mg Gabapentin (Neurontin) 100 mg PO BID [facility] Last Admin: 11/18/17 17:46 Dose: 100 mg Glucagon (Glucagen Diagnostic Kit) 0 mg IM STAT PRN; Protocol PRN Reason: Hypoglycemia Protocol Dextrose (Dextrose 5% In Water 1000 Ml) 1,000 mls @ 0 mls/hr IV .Q0M PRN; Protocol; Per Protocol PRN Reason: Hypoglycemia Protocol Insulin Human Regular (Novolin R) 0 unit SC ACHS [facility] PRN Reason: Protocol Last Admin: 11/18/17 17:08 Dose: Not Given Losartan Potassium (Cozaar) 50 mg PO DAILY [facility] Last Admin: 11/18/17 10:39 Dose: 50 mg Meclizine HCl (Antivert) 25 mg PO TID [facility] Last Admin: 11/18/17 17:47 Dose: 25 mg Oxybutynin Chloride (Ditropan Tab) 5 mg PO DAILY [facility] Last Admin: 11/18/17 10:39 Dose: 5 mg Pantoprazole Sodium (Protonix Ec Tab) 40 mg PO DAILY [facility] Last Admin: 11/18/17 10:39 Dose: 40 mg Paroxetine HCl (Paxil) 10 mg PO DAILY [facility] Last Admin: 11/18/17 10:39 Dose: 10 mg Potassium Chloride (K-Dur 20 Meq Er Tab) 20 meq PO DAILY [facility] Last Admin: 11/18/17 10:39 Dose: 20 meq Fluticasone/Salmeterol (Advair Diskus 500/50) 1 puff INH RQD [facility] Last Admin: 11/18/17 08:04 Dose: Not Given Sitagliptin Phosphate (Januvia) 50 mg PO DAILY [facility] Last Admin: 11/18/17 10:39 Dose: 50 mg - Labs Labs: 11/18/17 08:49 11/18/17 08:49
[2017-11-19] MEDS: Albuterol 0.083% Inhal Sol (2.5 mg/3 mL) UD IH SCH ×3 (01:42→13:30)
[2017-11-19 07:14] LABS: BASO % 0.6 % (0.0-2.0); EOS # 0.2 K/uL (0.0-0.7); EOS % 2.9 % (0.0-4.0); HEMOGLOBIN 11.5 g/dL (11.0-16.0); LYMPH % 30.1 % (20.0-40.0); MEAN CELL VOLUME 90.8 fL (81.0-99.0); MEAN CORPUSCULAR HEMOGLOBIN 31.3 pg (27.0-31.0); MEAN CORPUSCULAR HGB CONC 34.4 g/dL (33.0-37.0); MEAN PLATELET VOLUME 7.6 fL (7.2-11.7); MONO # 0.9 K/uL (0.0-0.8); MONO % 13.5 % (0.0-10.0); NEUT # 3.5 K/uL (1.8-7.0); NEUT % 52.9 % (50.0-75.0); NRBC % 0.1 % (0.0-2.0); RBC 3.69 Mil/uL (3.80-5.20); RED CELL DISTRIBUTION WIDTH 13.7 % (11.5-14.5); WHITE BLOOD COUNT 6.7 K/uL (4.8-10.8)
[2017-11-19] MEDS: Fluticasone-Salmeterol 500-50mcg Diskus INH SCH (07:38)
[2017-11-19 07:52] LABS: ALB/GLOB RATIO 1.2 (1.0-2.1); ALBUMIN 3.9 g/dL (3.5-5.0); CALCIUM 9.4 mg/dl (8.6-10.4)
[2017-11-19 07:55] VITALS: TEMP 98; O2SAT 95
[2017-11-19] MEDS: (Novolin R) Insulin Human Regular 100 units/ml vial SC SCH ×2 (08:07→11:43)
[2017-11-19] MEDS: Potassium Chloride 20 mEq ER Tab PO SCH (09:36)
[2017-11-19] MEDS: Pantoprazole 40 mg EC Tab PO SCH (09:36)
[2017-11-19 09:40] VITALS: BP 127/52
[2017-11-19 12:35] VITALS: PULSE 67
--- NOTE | 2017-11-19 12:50 | CP.PCM.PN ---
Subjective - Date & Time of Evaluation Date of Evaluation: 11/19/17 Time of Evaluation: 10:20 - Subjective Subjective: Cardiology progress note ( Dr. Wallace's service): Patient was seen and examined at bedside. Patient reports that she is doing well without any acute complaints. Patient denies fever, chills, SOB, chest pain , palpitations but admits to non-productive cough and mild SOB on exertion. As per staff, patient does get out of bed and ambulates to the bathroom without any difficulties. Objective - Vital Signs/Intake and Output Vital Signs (last 24 hours): Temp Pulse Resp BP Pulse Ox 98.0 F 67 20 127/52 L 95 11/19/17 07:00 11/19/17 08:00 11/19/17 07:00 11/19/17 11:17 11/19/17 07:00 - Medications Medications: Current Medications Albuterol Sulfate (Albuterol 0.083% Inhal Amberly (2.5 Mg/3 Ml) Ud) 2.5 mg IH Q6H [facility] Last Admin: 11/19/17 07:37 Dose: 2.5 mg Alprazolam (Xanax) 0.5 mg PO HS [facility] Last Admin: 11/18/17 22:16 Dose: 0.5 mg Amlodipine Besylate (Norvasc) 5 mg PO DAILY [facility] Last Admin: 11/19/17 09:37 Dose: 5 mg Carvedilol (Coreg) 25 mg PO DAILY [facility] Last Admin: 11/19/17 11:17 Dose: 25 mg Clopidogrel Bisulfate (Plavix) 75 mg PO DAILY [facility] Last Admin: 11/19/17 09:36 Dose: 75 mg Dextrose (Dextrose 50% Inj) 0 ml IV STAT PRN; Protocol PRN Reason: Hypoglycemia Protocol Dextrose (Glutose 15) 0 gm PO ONCE PRN; Protocol PRN Reason: Hypoglycemia Protocol Donepezil HCl (Aricept) 10 mg PO HS [facility] Last Admin: 11/18/17 22:16 Dose: 10 mg Ferrous Sulfate (Feosol) 325 mg PO DAILY [facility] Last Admin: 11/19/17 09:45 Dose: 325 mg Furosemide (Lasix) 40 mg IVP BID [facility] Last Admin: 11/19/17 09:35 Dose: 40 mg Gabapentin (Neurontin) 100 mg PO BID [facility] Last Admin: 11/19/17 09:36 Dose: 100 mg Glucagon (Glucagen Diagnostic Kit) 0 mg IM STAT PRN; Protocol PRN Reason: Hypoglycemia Protocol Heparin Sodium (Porcine) (Heparin) 5,000 units SC Q8 [facility] Dextrose (Dextrose 5% In Water 1000 Ml) 1,000 mls @ 0 mls/hr IV .Q0M PRN; Protocol; Per Protocol PRN Reason: Hypoglycemia Protocol Insulin Human Regular (Novolin R) 0 unit SC ACHS [facility] PRN Reason: Protocol Last Admin: 11/19/17 11:43 Dose: 1 units Losartan Potassium (Cozaar) 50 mg PO DAILY [facility] Last Admin: 11/19/17 09:36 Dose: 50 mg Meclizine HCl (Antivert) 25 mg PO TID [facility] Last Admin: 11/19/17 11:44 Dose: 25 mg Oxybutynin Chloride (Ditropan Tab) 5 mg PO DAILY [facility] Last Admin: 11/19/17 09:39 Dose: 5 mg Pantoprazole Sodium (Protonix Ec Tab) 40 mg PO DAILY [facility] Last Admin: 11/19/17 09:36 Dose: 40 mg Paroxetine HCl (Paxil) 10 mg PO DAILY [facility] Last Admin: 11/19/17 09:39 Dose: 10 mg Potassium Chloride (K-Dur 20 Meq Er Tab) 20 meq PO DAILY [facility] Last Admin: 11/19/17 09:36 Dose: 20 meq Fluticasone/Salmeterol (Advair Diskus 500/50) 1 puff INH RQD [facility] Last Admin: 11/19/17 07:38 Dose: Not Given Sitagliptin Phosphate (Januvia) 50 mg PO DAILY [facility] Last Admin: 11/19/17 09:36 Dose: 50 mg - Labs Labs: 11/19/17 07:02 11/19/17 07:02 - Constitutional Appears: Well, No Acute Distress - Head Exam Head Exam: ATRAUMATIC, NORMAL INSPECTION - Eye Exam Eye Exam: EOMI, Normal appearance - ENT Exam ENT Exam: Mucous Membranes Moist - Respiratory Exam Respiratory Exam: Clear to Ausculation Bilateral, NORMAL BREATHING PATTERN. absent: Chest Wall Tenderness, Prolonged Expiratory Phase, Rhonchi, Wheezes, Respiratory Distress - Cardiovascular Exam Cardiovascular Exam: REGULAR RHYTHM, +S1, +S2. absent: Tachycardia, JVD, Murmur - GI/Abdominal Exam GI & Abdominal Exam: Soft, Normal Bowel Sounds. absent: Distended, Firm, Guarding, Rigid, Tenderness, Hyperactive Bowel Sounds - Extremities Exam Extremities Exam: Normal Inspection. absent: Calf Tenderness, Pedal Edema - Neurological Exam Neurological Exam: Alert, Awake, Oriented x3 - Psychiatric Exam Psychiatric exam: Normal Affect, Normal Mood Assessment and Plan (1) CHF (congestive heart failure) Assessment & Plan: Patient is a 81 year old female with past medical history of HTN, hypercholesterolemia, DM, CAD, Asthma, Alzheimer, anxiety and anemia, who was admitted for CHF exacerbation with pro-BNP on admission (2710-442) On admission: - Pro-BNP: 2710----->442 - Chest X-ray: Diffuse increased/coarsened interstitial markings possibly representing interstitial infiltrates versus pulmonary edema/ CHF. . Calcified granuloma left lung base. Mild biapical pleural thickening. EKG: Normal sinus rhythm Echocardiogram (11/16/17): Normal ejection fraction with normal left ventricle function. Please refer to the EMR for complete impression Medications: * Lasix 40mg IV BID --->decreased to Lasix 20mg PO daily due to JERMAN * Cozaar 50mg PO daily * Coreg 25mg PO daily All plans and management discussed with Dr. Wallace Status: Acute
--- NOTE | 2017-11-19 14:10 | CP.PCM.PN ---
Subjective - Date & Time of Evaluation Date of Evaluation: 11/19/17 Time of Evaluation: 14:02 - Subjective Subjective: PGYIII progress note for Dr. Greenfield Pt seen and examined at bedside. No acute events overnight. Pt sitting comfortably on side of bed. Denies having any CP, SOB, abd pain, N/V/D/c, F/C, LE pain or swelling. Tolerating diet. Objective - Vital Signs/Intake and Output Vital Signs (last 24 hours): Temp Pulse Resp BP Pulse Ox 98.0 F 67 20 127/52 L 95 11/19/17 07:00 11/19/17 08:00 11/19/17 07:00 11/19/17 11:17 11/19/17 07:00 - Medications Medications: Current Medications Albuterol Sulfate (Albuterol 0.083% Inhal Amberly (2.5 Mg/3 Ml) Ud) 2.5 mg IH Q6H [facility] Last Admin: 11/19/17 13:30 Dose: Not Given Alprazolam (Xanax) 0.5 mg PO HS [facility] Last Admin: 11/18/17 22:16 Dose: 0.5 mg Amlodipine Besylate (Norvasc) 5 mg PO DAILY [facility] Last Admin: 11/19/17 09:37 Dose: 5 mg Carvedilol (Coreg) 25 mg PO DAILY [facility] Last Admin: 11/19/17 11:17 Dose: 25 mg Clopidogrel Bisulfate (Plavix) 75 mg PO DAILY [facility] Last Admin: 11/19/17 09:36 Dose: 75 mg Dextrose (Dextrose 50% Inj) 0 ml IV STAT PRN; Protocol PRN Reason: Hypoglycemia Protocol Dextrose (Glutose 15) 0 gm PO ONCE PRN; Protocol PRN Reason: Hypoglycemia Protocol Donepezil HCl (Aricept) 10 mg PO HS [facility] Last Admin: 11/18/17 22:16 Dose: 10 mg Ferrous Sulfate (Feosol) 325 mg PO DAILY [facility] Last Admin: 11/19/17 09:45 Dose: 325 mg Furosemide (Lasix) 20 mg PO DAILY [facility] Gabapentin (Neurontin) 100 mg PO BID [facility] Last Admin: 11/19/17 09:36 Dose: 100 mg Glucagon (Glucagen Diagnostic Kit) 0 mg IM STAT PRN; Protocol PRN Reason: Hypoglycemia Protocol Heparin Sodium (Porcine) (Heparin) 5,000 units SC Q8 [facility] Dextrose (Dextrose 5% In Water 1000 Ml) 1,000 mls @ 0 mls/hr IV .Q0M PRN; Protocol; Per Protocol PRN Reason: Hypoglycemia Protocol Insulin Human Regular (Novolin R) 0 unit SC ACHS [facility] PRN Reason: Protocol Last Admin: 11/19/17 11:43 Dose: 1 units Losartan Potassium (Cozaar) 50 mg PO DAILY [facility] Last Admin: 11/19/17 09:36 Dose: 50 mg Meclizine HCl (Antivert) 25 mg PO TID [facility] Last Admin: 11/19/17 11:44 Dose: 25 mg Oxybutynin Chloride (Ditropan Tab) 5 mg PO DAILY [facility] Last Admin: 11/19/17 09:39 Dose: 5 mg Pantoprazole Sodium (Protonix Ec Tab) 40 mg PO DAILY [facility] Last Admin: 11/19/17 09:36 Dose: 40 mg Paroxetine HCl (Paxil) 10 mg PO DAILY [facility] Last Admin: 11/19/17 09:39 Dose: 10 mg Potassium Chloride (K-Dur 20 Meq Er Tab) 20 meq PO DAILY [facility] Last Admin: 11/19/17 09:36 Dose: 20 meq Fluticasone/Salmeterol (Advair Diskus 500/50) 1 puff INH RQD [facility] Last Admin: 11/19/17 07:38 Dose: Not Given Sitagliptin Phosphate (Januvia) 50 mg PO DAILY [facility] Last Admin: 11/19/17 09:36 Dose: 50 mg - Labs Labs: 11/19/17 07:02 11/19/17 07:02 - Constitutional Appears: Non-toxic, No Acute Distress - Head Exam Head Exam: ATRAUMATIC, NORMOCEPHALIC - ENT Exam ENT Exam: Mucous Membranes Moist - Respiratory Exam Respiratory Exam: Clear to Ausculation Bilateral. absent: Accessory Muscle Use , Rales, Rhonchi, Wheezes, Respiratory Distress - Cardiovascular Exam Cardiovascular Exam: REGULAR RHYTHM, +S1, +S2. absent: Gallop, Rubs, Murmur - GI/Abdominal Exam GI & Abdominal Exam: Soft, Normal Bowel Sounds. absent: Distended, Firm, Guarding, Rigid, Tenderness, Organomegaly - Extremities Exam Extremities Exam: absent: Pedal Edema, Tenderness - Neurological Exam Neurological Exam: Alert, Awake, Normal Gait, Oriented x3 - Psychiatric Exam Psychiatric exam: Normal Affect, Normal Mood - Skin Skin Exam: Dry, Intact, Normal Color, Warm Assessment and Plan - Assessment and Plan (Free Text) Assessment: CHF Clinically, breathing and LE swelling significantly improved BNP on admission: 2710. Today BNP 442 CXR indicative of acute CHF Echo showed normal LV EF, Grade I diastolic dysfunction, mild TR, mild pulm HTN Cardio, Dr. Wallace consulted- recs appreciated Lasix 20mg po qd (decreased today due to mild JERMAN) Norvasc 5mg PO QD Coreg 25mg PO QD Cozaar 50mg PO QD JERMAN BUN/Cr ratio this am is 42/1.3 Likely 2/2 aggressive diuresis Decreased lasixs to 20 mg po qd CAD Plavix 75mg PO QD Coreg 25 mg po qd Alzheimer's Dementia Aricept 10mg PO QD Asthma albuterol 2.5mg INH q6hrs advair 500/50 1P RQD Anxiety Xanax 0.5mg PO QHS Paxil 10mg PO daily Anemia Stable H&H Ferrous sulfate 325mg PO daily HTN- well controlled Lasixs 20 mg po qd Coreg 25mg PO QD Cozaar 50mg PO QD Osteoperosis c/w alendronate (home med) Urinary incontinence Oxybutynin 5mg PO QD DM with neuropathy Fingersticks ACHS HgbA1c 6.0 ISS- low dose Januvia Gabapentin 100mg PO BID hypoglycemia protocol PPX Lovenox d/tisha due to mild JERMAN. Switched pt to heparin sc SCD protonix Case discussed with Dr. Greenfield. All medical management as per Dr. Greenfield Patient is stable for discharge per Dr. Greenfield Patient is to follow up with primary care doctor upon discharge. Patient is to continue all her home medications as prescribed. She is also discharged with Lasixs 20 mg orally by mouth. Please return to ED if symptoms worsen.
== END 2017-11-19 16:16 | disposition home or self-care (01) ==
LOC: C.ER 15:42 → C.9E 17:25 → C.6T 19:58
PROVIDERS: ADMIT Internal Medicine Pulmonary Disease; ATTEND Internal Medicine Pulmonary Disease
DX: I11.0 Hypertensive heart disease with heart failure (principal); I50.31 Acute diastolic (congestive) heart failure; G30.9 Alzheimer's disease, unspecified; F02.80 Dementia in other diseases classified elsewhere, unspecified severity, without behavioral disturbance, psychotic disturbance, mood disturbance, and anxiety; I25.10 Atherosclerotic heart disease of native coronary artery without angina pectoris; E87.6 Hypokalemia; I27.20 Pulmonary hypertension, unspecified; E11.40 Type 2 diabetes mellitus with diabetic neuropathy, unspecified; J45.909 Unspecified asthma, uncomplicated; F41.9 Anxiety disorder, unspecified; R32 Unspecified urinary incontinence; E78.00 Pure hypercholesterolemia, unspecified; D64.9 Anemia, unspecified; Z79.84 Long term (current) use of oral hypoglycemic drugs; Z88.6 Allergy status to analgesic agent
CPT/HCPCS: 36415; 70450; 71045; 80053; 81001; 82948; 83036; 83735; 83880; 84443; 84484; 85025; 87086; 93005; 93306; 94640; 94760; 96374; 99285; G0378; J1644; J1650; J1940; J3480

== ENCOUNTER 2017-11-28 09:48 | Emergency (ER) | payer MEDICARE, OTHER ==
[2017-11-28 09:48] VITALS: BMI 22.9
[2017-11-28 09:57] VITALS: BP 155/74; PULSE 79; RESP 20; TEMP 99; O2SAT 93
--- NOTE | 2017-11-28 10:42 | C.PDOC ---
History Of Present Illness 82 y/o female BIBA for evaluation of left sided lower chest and rib pain s/p mechanical fall which occurred [employer]. Patient states that she tripped and fell forward while walking. She made a twisting motion with her upper body. Patient denies having CP and palpitations prior to fall. Currently, patient denies having head injury, LOC, dizziness, CP, SOB, nausea, vomiting, and abdominal pain. Time Seen by Provider: 11/28/17 09:53 Chief Complaint (Nursing): Chest Pain History Per: Patient History/Exam Limitations: no limitations Onset/Duration Of Symptoms: Hrs Current Symptoms Are (Timing): Still Present Severity: Moderate Past Medical History Reviewed: Historical Data, Nursing Documentation, Vital Signs Vital Signs: Last Vital Signs Temp 99.0 F 11/28/17 09:53 Pulse 79 11/28/17 09:53 Resp 20 11/28/17 09:53 BP 155/74 H 11/28/17 09:53 Pulse Ox 93 L 11/28/17 13:16 - Medical History PMH: Arthritis, Diabetes, Gastritis, HTN, Hypercholesterolemia Surgical History: Appendectomy - [facility] Procedures INJECT/INFUSE NEC (10/12/12) NON-INVASIVE MECHANICAL VENTILATION (05/28/13) Family History: States: No Known Family Hx - Social History Hx Tobacco Use: No Hx Alcohol Use: No Hx Substance Use: No - Immunization History Hx Tetanus Toxoid Vaccination: No Hx Influenza Vaccination: Yes Hx Pneumococcal Vaccination: Yes Review Of Systems Except As Marked, All Systems Reviewed And Found Negative. Cardiovascular: Positive for: Chest Pain. Negative for: Palpitations Respiratory: Negative for: Shortness of Breath Gastrointestinal: Negative for: Nausea, Vomiting, Abdominal Pain Neurological: Negative for: Headache, Dizziness Physical Exam - Physical Exam Appears: Non-toxic, No Acute Distress, Other (comfortable) Skin: Normal Color, Warm, Dry, Ecchymosis Head: Atraumatic, Normacephalic Eye(s): bilateral: Normal Inspection, PERRL, EOMI Nose: Normal Oral Mucosa: Moist Neck: Normal ROM, No Midline Cervical Tenderness, Supple Chest: Symmetrical, Tenderness (tenderness to palpation along left anterior ribs 9-10), No Ecchymosis, Other (no abrasions) Cardiovascular: Rhythm Regular Respiratory: Normal Breath Sounds, No Rales, No Rhonchi, No Wheezing Gastrointestinal/Abdominal: Normal Exam, Soft, No Tenderness, No Guarding, No Rebound Neurological/Psych: Oriented x3, Normal Speech Gait: Steady ED Course And Treatment O2 Sat by Pulse Oximetry: 93 (RA) Pulse Ox Interpretation: Normal - Other Rad X-Ray - Chest and Ribs X-Ray: Viewed By Me, Read By Radiologist Interpretation: Date of service: 11/28/2017. PROCEDURE: Radiographs of the Chest and Right Ribs. HISTORY: left sided rib pain, r/o fx. COMPARISON: Frontal chest radiograph 11/14/2017. TECHNIQUE: Frontal radiograph of the chest and multiple oblique radiographs of the right ribs were obtained. FINDINGS: RIGHT RIBS: Potential subacute or even chronic healed fracture at the lateral 9th rib with no additional potential fracture identified otherwise. LUNGS: Reiteration of chronic interstitial fibrosis no acute alveolitis. PLEURA: No pneumothorax or pleural fluid. CARDIOVASCULAR: Stable cardiomegaly. No pulmonary vascular congestion. OTHER FINDINGS: Deformity proximal right humerus again identified. IMPRESSION: Potential process late subacute or early chronic fracture lateral segment right 9th rib. Right ribs otherwise unremarkable. No acute cardiopulmonary changes. Mild but stable cardiomegaly evident without pulmonary vascular congestion. Chronic interstitial pulmonary disease reiterated. Findings reviewed and discussed with Dr. Chamberlain with written down and read back verification 11/28/2017 11:45 a.m.. Progress Note: X- Ray- Chest and Ribs is negative for fracture. Patient treated with Tylenol PO. Patient has been discharged and instructed to follow up with PMD in 1-2 days. Disposition Counseled Patient/Family Regarding: Studies Performed, Diagnosis, Need For Followup, Rx Given - Disposition Referrals: Doug Fletcher MD [Staff Provider] - Disposition: HOME/ ROUTINE Disposition Time: 10:45 Condition: STABLE Additional Instructions: FOLLOW UP WITH YOUR DOCTOR OR CLINIC IN 1-2 DAYS USE MEDICATION FOR PAIN NEEDED RETURN TO EMERGENCY ROOM IF YOU HAVE ANY CONCERNING SYMPTOMS SEGUIMIENTO CON ANAND MDICO O CLNICA EN 1-2 QUIROZ USE MEDICAMENTO PARA EL DOLOR SEGN SEA NECESARIO REGRESE AL JOSE DE EMERGENCIA SI TIENE ALGUNOS SNTOMAS RELACIONADOS Prescriptions: Acetaminophen [Tylenol 325mg tab] 650 mg PO Q6 PRN #30 tab PRN Reason: pain/fever Instructions: Costochondritis (DC) Forms: [employer] (Khmer) Print Language: BELARUSIAN - POA Present On Arrival: Falls Or Trauma - Clinical Impression Clinical Impression: Chest wall pain - Scribe Statement The provider has reviewed the documentation as recorded by the Scribe Thang Do Provider Attestation: All medical record entries made by the Margieibe were at my direction and personally dictated by me. I have reviewed the chart and agree that the record accurately reflects my personal performance of the history, physical exam, medical decision making, and the department course for this patient. I have also personally directed, reviewed, and agree with the discharge instructions and disposition.
--- NOTE | 2017-11-28 11:46 | RAD ---
Date of service: 11/28/2017 PROCEDURE: Radiographs of the Chest and Right Ribs. HISTORY: left sided rib pain, r/o fx COMPARISON: Frontal chest radiograph 11/14/2017. TECHNIQUE: Frontal radiograph of the chest and multiple oblique radiographs of the right ribs were obtained. FINDINGS: RIGHT RIBS: Potential subacute or even chronic healed fracture at the lateral 9th rib with no additional potential fracture identified otherwise LUNGS: Reiteration of chronic interstitial fibrosis no acute alveolitis. PLEURA: No pneumothorax or pleural fluid. CARDIOVASCULAR: Stable cardiomegaly. No pulmonary vascular congestion. OTHER FINDINGS: Deformity proximal right humerus again identified. IMPRESSION: Potential process late subacute or early chronic fracture lateral segment right 9th rib. Right ribs otherwise unremarkable. No acute cardiopulmonary changes. Mild but stable cardiomegaly evident without pulmonary vascular congestion. Chronic interstitial pulmonary disease reiterated. Findings reviewed and discussed with Dr. Chamberlain with written down and read back verification 11/28/2017 11:45 a.m..
== END 2017-11-28 11:10 | disposition home or self-care (01) ==
LOC: C.ER 09:48
DX: R07.89 Other chest pain (principal)

== ENCOUNTER 2018-05-09 15:55 | Emergency (ER) | payer MEDICARE, OTHER ==
[2018-05-09 16:51] VITALS: BMI 23.8
[2018-05-09 17:37] LABS: BASO % 0.6 % (0.0-2.0); EOS # 0.1 K/uL (0.0-0.7); EOS % 1.6 % (0.0-4.0); HEMOGLOBIN 13.2 g/dL (11.0-16.0); LYMPH # 1.4 K/uL (1.0-4.3); MEAN CELL VOLUME 93.1 fL (81.0-99.0); MEAN CORPUSCULAR HEMOGLOBIN 30.4 pg (27.0-31.0); MEAN CORPUSCULAR HGB CONC 32.7 g/dL (33.0-37.0); MEAN PLATELET VOLUME 7.5 fL (7.2-11.7); MONO # 0.6 K/uL (0.0-0.8); MONO % 9.9 % (0.0-10.0); NEUT # 4.4 K/uL (1.8-7.0); NEUT % 66.9 % (50.0-75.0); RBC 4.35 Mil/uL (3.80-5.20); RED CELL DISTRIBUTION WIDTH 12.9 % (11.5-14.5); WHITE BLOOD COUNT 6.6 K/uL (4.8-10.8)
--- NOTE | 2018-05-09 17:40 | RAD ---
HISTORY: SOB COMPARISON: Chest x-ray performed 11/28/17 TECHNIQUE: Chest, one view. FINDINGS: LUNGS: Biapical pleural thickening. Scattered granulomatous changes. No focal consolidation. Please note that chest x-ray has limited sensitivity for the detection of pulmonary masses. PLEURA: No significant pleural effusion identified. No definite pneumothorax . CARDIOVASCULAR: Right hilar prominence. Heart size appears top normal. Atherosclerotic calcifications of the aorta. OSSEOUS STRUCTURES: Osseous demineralization. Degenerative changes. VISUALIZED UPPER ABDOMEN: Unremarkable. OTHER FINDINGS: None. IMPRESSION: Biapical pleural thickening. Scattered granulomatous changes. Hypoinflation. Right hilar prominence. Atherosclerotic calcifications of the aorta.
[2018-05-09 17:44] LABS: SQUAMOUS EPITHIAL 4 /hpf (0-5); URINE BACTERIA OCC (<OCC); URINE BILIRUBIN NEGATIVE (NEGATIVE); URINE BLOOD NEGATIVE (NEGATIVE); URINE CLARITY Hazy (Clear); URINE COLOR Yellow (YELLOW); URINE GLUCOSE (UA) NORMAL (Normal); URINE LEUKOCYTE ESTERASE NEG Leu/uL (Negative); URINE PROTEIN NEGATIVE (NEGATIVE); URINE UROBILINOGEN NORMAL mg/dL (0.2-1.0)
[2018-05-09 17:56] LABS: PROTHROMBIN TIME 10.5 SECONDS (9.7-12.2)
--- NOTE | 2018-05-09 18:06 | C.PDOC ---
History Of Present Illness 82 year old female presents to ED with complaint of "not feeling well." Patient states she has experienced decreased PO intake and generalized weakness for the past 3-4 days. She also states she has been experiencing nausea, difficulty sleeping, and worsening leg edema. Patient denies chest pain, palpitations, cough, fever, vomiting, diarrhea, headache, dizziness, and visual changes. Time Seen by Provider: 05/09/18 16:07 Chief Complaint (Nursing): GI Problem History Per: Patient History/Exam Limitations: no limitations Onset/Duration Of Symptoms: Days (3-4) Current Symptoms Are (Timing): Still Present Past Medical History Reviewed: Historical Data, Nursing Documentation, Vital Signs - Medical History PMH: Arthritis, Diabetes, Gastritis, HTN, Hypercholesterolemia Surgical History: Appendectomy - [facility] Procedures INJECT/INFUSE NEC (10/12/12) NON-INVASIVE MECHANICAL VENTILATION (05/28/13) Family History: States: Unknown Family Hx - Social History Hx Tobacco Use: No Hx Alcohol Use: No Hx Substance Use: No - Immunization History Hx Tetanus Toxoid Vaccination: No Hx Influenza Vaccination: Yes Hx Pneumococcal Vaccination: Yes Review Of Systems Constitutional: Positive for: Weakness, Other (decreased PO intake). Negative for: Fever, Chills Eyes: Negative for: Vision Change Cardiovascular: Negative for: Chest Pain, Palpitations Respiratory: Negative for: Cough, Shortness of Breath Gastrointestinal: Positive for: Nausea. Negative for: Vomiting, Diarrhea Musculoskeletal: Positive for: Leg Pain (worsening leg edema) Neurological: Positive for: Other (difficulty sleeping). Negative for: Weakness, Numbness, Headache, Dizziness Physical Exam - Physical Exam Appears: Well, Non-toxic, No Acute Distress Skin: Normal Color, Warm, Dry Head: Atraumatic, Normacephalic Neck: Normal, Supple Chest: Symmetrical, No Deformity Cardiovascular: Rhythm Regular, No Murmur Respiratory: Rales (mild rales at the base of lungs bilaterally) Gastrointestinal/Abdominal: Soft, No Tenderness Extremity: Other (+1 pitting edema of the lower extremities) Pulses: Left Radial: Normal, Right Radial: Normal Neurological/Psych: Oriented x3, Normal Speech, Normal Cognition ED Course And Treatment - Laboratory Results Result Diagrams: 05/09/18 17:30 05/09/18 17:30 Lab Results: PT 10.5 SECONDS (9.7-12.2) 05/09/18 17:30 INR 1.0 05/09/18 17:30 APTT 33 SECONDS (21-34) 05/09/18 17:30 Urine Color Yellow (YELLOW) 05/09/18 17:35 Urine Clarity Hazy (Clear) 05/09/18 17:35 Urine pH 6.0 (5.0-8.0) 05/09/18 17:35 Ur Specific Counselor 1.005 (1.003-1.030) 05/09/18 17:35 Urine Protein Negative mg/dL (NEGATIVE) 05/09/18 17:35 Urine Glucose (UA) Normal mg/dL (Normal) 05/09/18 17:35 Urine Ketones Negative mg/dL (NEGATIVE) 05/09/18 17:35 Urine Blood Negative (NEGATIVE) 05/09/18 17:35 Urine Nitrate Negative (NEGATIVE) 05/09/18 17:35 Urine Bilirubin Negative (NEGATIVE) 05/09/18 17:35 Urine Urobilinogen Normal mg/dL (0.2-1.0) 05/09/18 17:35 Ur Leukocyte Esterase Neg Kalani/uL (Negative) 05/09/18 17:35 Urine WBC (Auto) < 1 /hpf (0-5) 05/09/18 17:35 Urine RBC (Auto) < 1 /hpf (0-3) 05/09/18 17:35 Ur Squamous Epith Cells 4 /hpf (0-5) 05/09/18 17:35 Ur Transition Epith Cell < 1 /hpf (0-3) 05/09/18 17:35 Urine Bacteria Occ (<OCC) H 05/09/18 17:35 ECG: Interpreted By Me, Viewed By Me ECG Rhythm: Sinus Rhythm Interpretation Of ECst degree AV block. Left axis deviation. T-wave inversion in V2. No acute ST changes Rate From EC - Other Rad CXR X-Ray: Interpreted by Me, Viewed By Me Interpretation: Accession No. : [id number]. Patient Name / ID : SONI GIBBS / [id number]. Exam Date : 05/09/2018 17:09:19 ( Approved ). Study Comment : Sex / Age : F / [id number]. Creator : Rosemarie Lees MD. Dictator : Rosemarie Lees MD. Fretted Instrument Maker Hand : Service Order Dispatcher Chief : Rosemarie Lees MD. Approver2 : Report Date : 05/09/2018 17:36:46. My Comment : . HISTORY: SOB. COMPARISON: Chest x-ray performed 11/28/17. TECHNIQUE: Chest, one view. FINDINGS: LUNGS: Biapical pleural thickening. Scattered granulomatous changes. No focal consolidation. Please note that chest x-ray has limited sensitivity for the detection of pulmonary masses. PLEURA: No sign ificant pleural effusion identified. No definite pneumothorax . CARDIOVASCULAR: Right hilar prominence. Heart size appears top normal. Atherosclerotic calcifications of the aorta. OSSEOUS STRUCTURES: Osseous demineralization. Degenerative changes. VISUALIZED UPPER ABDOMEN: Unremarkable. OTHER FINDINGS: None. IMPRESSION: Biapical pleural thickening. Scattered granulomatous changes. Hypoinflation. Right hilar prominence. Atherosclerotic calcifications of the aorta. Progress Note: EKG and CXR ordered for patient. Labs ordered with troponin and UA. Disposition Counseled Patient/Family Regarding: Studies Performed, Diagnosis, Need For Followup - Disposition Referrals: Arthur Fletcher MD [IM] - Disposition: HOME/ ROUTINE Disposition Time: 18:45 Condition: STABLE Additional Instructions: FOLLOW UP WITH YOUR DOCTOR IN 1-2 DAYS DRINK PLENTY OF FLUIDS RETURN TO EMERGENCY ROOM IF SYMPTOMS WORSEN SEGUIR CON ANAND MDICO EN 1-2 QUIROZ BEBER MUCHO LQUIDO VUELVA A LA JOSE DE EMERGENCIA SI LOS SNTOMAS SE DELCID PROBLEMAS Instructions: Viral Syndrome (DC) Forms: [employer] (Greek) Print Language: MACEDONIAN - Clinical Impression Clinical Impression: Evaluation by medical service required, Viral syndrome - Scribe Statement The provider has reviewed the documentation as recorded by the Scribe (Batsheva Black) All medical record entries made by the Scribe were at my direction and personally dictated by me. I have reviewed the chart and agree that the record accurately reflects my personal performance of the history, physical exam, medical decision making, and the department course for this patient. I have also personally directed, reviewed, and agree with the discharge instructions and disposition.
[2018-05-09 18:07] VITALS: O2SAT 99
[2018-05-09 18:28] LABS: BLOOD UREA NITROGEN 28 mg/dL (7-17); GFR NON-AFRICAN AMERICAN 48
[2018-05-09 18:29] LABS: ALB/GLOB RATIO 1.8 (1.0-2.1); ALBUMIN 5.1 g/dL (3.5-5.0); ALT/SGPT 19 U/L (9-52); AST/SGOT 63 U/L (14-36); B-TYPE NATRIURETIC PEPTIDE 421 pg/mL (0-900); CALCIUM 10.2 mg/dl (8.6-10.4); CK-MB 0.7 ng/mL (0.0-3.38)
[2018-05-09 19:08] VITALS: BP 117/49; PULSE 76; RESP 18; TEMP 97.9
--- NOTE | 2018-05-10 10:44 | CARD ---
APPROVED REPORT Date of service: 05/09/2018 EKG Measurement Heart [id number] <Conclusion> Sinus rhythm with 1st degree AV block Left anterior fascicular block Nonspecific T wave abnormality Abnormal ECG
== END 2018-05-09 23:00 | disposition home or self-care (01) ==
LOC: C.ER 15:55
DX: B34.9 Viral infection, unspecified (principal); E11.9 Type 2 diabetes mellitus without complications; E78.00 Pure hypercholesterolemia, unspecified; I10 Essential (primary) hypertension

== ENCOUNTER 2018-08-05 11:03 | Emergency (ER) | payer MEDICARE, OTHER ==
[2018-08-05 11:03] VITALS: BMI 23.8
[2018-08-05 11:15] VITALS: RESP 18
--- NOTE | 2018-08-05 12:00 | C.PDOC ---
History Of Present Illness 82 y/o female,w/PMhx of diabetes and HTN, presents to the ER complaining of cough which has been present for the past 22 days. Patient states that she has associated body aches and back pain. Patient reports that she went to her to PMD during the initial onset and her PMD prescribed her cough medicine abx.She notes that she took the medications with relief. However, she states that the symptoms have returned. Denies having fever,chills, CP,SOB nausea, vomiting, abdominal pain, diarrhea, hx of COPD, and hx of smoking. HPI: Influenza Time Seen by Provider: 08/05/18 11:16 Chief Complaint: Cough, Cold, Congestion History Per: Patient Exam Limitations: no limitations Have you had recent travel within the past 21 days to any of the following countries: [place], [place], [place] or [place]?: No Symptoms include: bodyaches, cough. denies: vomiting, diarrhea, chest pain, difficulty breathing Risk factors for flu complications: Yes: adult > 65 years Past Medical History Reviewed: Historical Data, Nursing Documentation, Vital Signs Vital Signs: Last Vital Signs Temp 98 F 08/05/18 11:08 Pulse 75 08/05/18 11:08 Resp 18 08/05/18 11:08 BP 129/65 08/05/18 11:08 Pulse Ox 100 08/05/18 11:08 Primary Care Provider: Arthur Fletcher - Medical History PMH: Arthritis, Diabetes, Gastritis, HTN, Hypercholesterolemia Surgical History: Appendectomy - [facility] Procedures INJECT/INFUSE NEC (10/12/12) NON-INVASIVE MECHANICAL VENTILATION (05/28/13) Family History: States: No Known Family Hx - Social History Hx Tobacco Use: No Hx Alcohol Use: No Hx Substance Use: No - Immunization History Hx Tetanus Toxoid Vaccination: No Hx Influenza Vaccination: Yes Hx Pneumococcal Vaccination: Yes Review Of Systems Except As Marked, All Systems Reviewed And Found Negative. Constitutional: Positive for: Malaise. Negative for: Fever, Chills Cardiovascular: Negative for: Chest Pain Respiratory: Positive for: Cough. Negative for: Shortness of Breath Gastrointestinal: Negative for: Nausea, Vomiting, Abdominal Pain, Diarrhea Musculoskeletal: Positive for: Back Pain Physical Exam - Physical Exam Appears: Non-toxic, No Acute Distress Skin: Normal Color, Warm, Dry Head: Atraumatic, Normacephalic Eye(s): bilateral: Normal Inspection Ear(s): Bilateral: Normal Nose: Normal Oral Mucosa: Moist Lips: Normal Appearing Throat: Normal, No Erythema, No Exudate Neck: Normal, Supple Lymphatic: Adenopathy (no lymphadenopathy) Chest: Symmetrical Cardiovascular: Rhythm Regular Respiratory: Normal Breath Sounds, No Rales, No Rhonchi, No Wheezing Gastrointestinal/Abdominal: Normal Exam, Soft Extremity: Normal ROM, No Swelling, Other (no edema to bilateral lower extremities) Extremity: Bilateral: Atraumatic, Normal ROM Neurological/Psych: Oriented x3, Normal Speech Medical Decision Making Medical Decision Making: Plan: --CXR --Flu Swab 1344 08/05/18 Patient reevaluated and updated on results. Vitals signs to be rechecked. Will also give neb treatment and PO prednisone. Discussed with Dr Perez. 1426 08/05/18 Patient states she is feeling better and continues to ask when she is going home. 99% on RA. 1451 07/06/18 Lungs remain clear on exam. Patient states she is feeling better. Requesting that her IV be taken out and that she be written prescriptions. Wants to go home. Patient is a 82yo female with cough, hx of bronchitis on the past. Lungs clear on exam. 99-100% RA. Afebrile. CXR shows NAD. Will treat with antibiotic, will continue nebulizer and will prescribe steroids. Nontoxix. Well appearing. Advised to follow-up with her PMD. - Laboratory Results Result Diagrams: 08/05/18 12:50 08/05/18 12:50 - ECG ECG: Positive for: Interpreted By Me, Viewed By Me ECG Rhythm: Positive for: Normal QRS, Nonspecific Changes. Negative for: ST/T Changes Rate: 68 O2 Sat by Pulse Oximetry: 100 (RA) Pulse Ox Interpretation: Normal - Radiology X-Ray: Interpreted by Me, Viewed By Me X-Ray Interpretation: No Acute Disease (No infiltrates) - Other Rad XRAY CHEST X-Ray: Read By Radiologist (Radiologist interpretation of xray reviewed shows Biapical pleural thickening. Emphysematous changes. Bilateral hilar prominence) Disposition Counseled Patient/Family Regarding: Studies Performed, Diagnosis, Need For Followup, Rx Given - Disposition Referrals: Arthur Fletcher MD [IM] - Disposition: HOME/ ROUTINE Disposition Time: 14:54 Condition: IMPROVED Prescriptions: Albuterol 0.083% [Albuterol 0.083% Inhal Amberly (2.5 mg/3 ml) UD] 2.5 mg IH QD6 PRN 3 Days #20 neb PRN Reason: Cough Amoxicillin/Clavulanate [Augmentin 875 MG-125 MG] 1 tab PO BID 10 Days #20 tab predniSONE [Prednisone] 40 mg PO DAILY #5 tab Instructions: Acute Bronchitis Forms: Gen Discharge Inst Czech Print Language: PANAMANIAN - Clinical Impression Clinical Impression: Bronchitis - PA / MINER ASSISTANT / Resident Statement MD/DO has reviewed & agrees with the documentation as recorded. - Scribe Statement The provider has reviewed the documentation as recorded by the Benjamin Do Provider Attestation All medical record entries made by the Benjamin were at my direction and personally dictated by me. I have reviewed the chart and agree that the record accurately reflects my personal performance of the history, physical exam, medical decision making, and the department course for this patient. I have also personally directed, reviewed, and agree with the discharge instructions and disposition.
--- NOTE | 2018-08-05 12:52 | RAD ---
HISTORY: cough COMPARISON: Chest x-ray performed 05/09/18 TECHNIQUE: Chest PA and lateral, 2 views FINDINGS: LUNGS: Biapical pleural thickening. Increased lucencies especially within the bilateral upper lung menendez compatible with underlying emphysema. No focal consolidation. Bilateral hilar prominence. Scattered probable calcified granulomas. Please note that chest x-ray has limited sensitivity for the detection of pulmonary masses. PLEURA: No significant pleural effusion identified. No definite pneumothorax . CARDIOVASCULAR: Heart size appears within normal limits. Dense atherosclerotic calcifications of the aorta. OSSEOUS STRUCTURES: Degenerative changes of the spine including confluent anterior osteophyte formation. Osseous demineralization. VISUALIZED UPPER ABDOMEN: Unremarkable. OTHER FINDINGS: None. IMPRESSION: Biapical pleural thickening. Emphysematous changes. Bilateral hilar prominence.
[2018-08-05 12:54] LABS: BASO % 0.6 % (0.0-2.0); EOS # 0.1 K/uL (0.0-0.7); EOS % 1.7 % (0.0-4.0); HEMOGLOBIN 13.1 g/dL (11.0-16.0); LYMPH % 13.6 % (20.0-40.0); MEAN CELL VOLUME 93.6 fL (81.0-99.0); MEAN CORPUSCULAR HGB CONC 34.2 g/dL (33.0-37.0); MEAN PLATELET VOLUME 7.7 fL (7.2-11.7); MONO # 0.8 K/uL (0.0-0.8); MONO % 10.3 % (0.0-10.0); NEUT # 5.5 K/uL (1.8-7.0); NEUT % 73.8 % (50.0-75.0); RBC 4.08 Mil/uL (3.80-5.20); RED CELL DISTRIBUTION WIDTH 14.6 % (11.5-14.5); WHITE BLOOD COUNT 7.5 K/uL (4.8-10.8)
[2018-08-05 13:08] LABS: ALB/GLOB RATIO 1.3 (1.0-2.1); ALBUMIN 4.8 g/dL (3.5-5.0); ALT/SGPT 15 U/L (9-52); AST/SGOT 27 U/L (14-36); BLOOD UREA NITROGEN 35 mg/dL (7-17); CALCIUM 9.6 mg/dl (8.6-10.4); GFR NON-AFRICAN AMERICAN 53
[2018-08-05] MEDS ORDERED: Albuterol 0.083% Inhal Sol (2.5 mg/3 mL) UD INH STA (13:54)
[2018-08-05] MEDS ORDERED: Albuterol 0.083% Inhal Sol (2.5 mg/3 mL) UD ONE (14:07)
[2018-08-05] MEDS ORDERED: Ipratropium 0.02% Inhal Soln (0.5 mg/2.5 ml) UD IH STA (14:18)
[2018-08-05] MEDS ORDERED: Ipratropium 0.02% Inhal Soln (0.5 mg/2.5 ml) UD IH ONE (14:31)
[2018-08-05 15:08] VITALS: BP 169/68; TEMP 97.9
[2018-08-05 21:47] VITALS: PULSE 68; O2SAT 100
== END 2018-08-05 15:16 | disposition home or self-care (01) ==
LOC: C.ER 11:03
DX: J40 Bronchitis, not specified as acute or chronic (principal); E11.9 Type 2 diabetes mellitus without complications; I10 Essential (primary) hypertension; E78.00 Pure hypercholesterolemia, unspecified